=== PATIENT | male | born 1950 | race Asian ===

== ENCOUNTER 2021-09-16 07:23 | Day surgery (SDC) | payer MEDICARE, SELFPAY ==
[2021-09-09 14:36] VITALS: BMI 28.7
--- NOTE | 2021-09-12 16:07 | MHC.SHP ---
Pre-Procedural Eval Section A Date of Service: 09/12/21 The patient is an INPATIENT: No Changes since office visit: No Cold of Flu in the past 2 weeks, No New Medical Problems, No Changes in Medication and No Patient answered all questions The History & Physical has been completed within 30 days and I have reviewed it.: Yes Section B Chief Complaint: cataract Allergies: Allergies Allergy/AdvReac Type Severity Reaction Status Date / Time No Known Allergies Allergy Verified 09/09/21 14:27 Plan Diagnosis/Plan: Unchanged I have reviewed the history and physical and performed a pertinent physical examination on my patient. No changes have occurred unless specified.
--- NOTE | 2021-09-13 09:01 | P.CONAN_ITS ---
Documented by User: Sherlyn Viveros NP 09/13/21 09:01 HPI - Anesthesia Eval Consult details Narrative: 70yo M for Right Cataract Extraction IOL Insertion PCP Cleared No previous cataract on record [facility] Past Medical History Medical History (Updated 09/09/21 @ 14:35 by Odalys Morrow, RN) Cataract Emphysema lung GERD (gastroesophageal reflux disease) Mitral regurgitation Prostate nodule Surgical History Surgical History (Updated 09/09/21 @ 14:27 by Odalys Morrow, RN) History of appendectomy History of thoracotomy Hx of colonoscopy Social History Social History Are you a primary director day care center to a significant other at home: No Do you presently have visiting nurse or other home services: No Patient Tobacco Use Status: Former Tobacco user Quit Date: 2005 Second Hand Smoke Exposure: No Are you DNR?: No Advance Directives: No Advance Directives Information Provided: No Advance Directives on File: No Recently lost weight without trying: No Eating poorly because of decreased appetite: No Nutrition Risks: No Nutritional Risk Meds Allergies Allergy/AdvReac Type Severity Reaction Status Date / Time No Known Allergies Allergy Verified 09/09/21 14:27 Home Medications Medication Instructions Recorded Confirmed Last Taken Type No Known Home Meds 09/09/21 09/09/21 Unknown History Exam Exam Date and Time: September 13, 2021 0901 Height,Weight and Vital Signs: Height 5 ft 10 in Weight 90.718 kg Assessment and Plan Assessment Anesthesia Assessment: Chart Reviewed Documented by User: Keyanna William MD 09/16/21 08:26 [facility] Past Medical History Medical History (Updated 09/09/21 @ 14:35 by Odalys Morrow RN) Cataract Emphysema lung GERD (gastroesophageal reflux disease) Mitral regurgitation Prostate nodule Family History Family history of problems with anesthesia: No Surgical History Surgical History (Updated 09/09/21 @ 14:27 by Odalys Morrow RN) History of appendectomy History of thoracotomy Hx of colonoscopy History of Problems with Anesthesia: No Social History Social History Are you a primary director day care center to a significant other at home: No Do you presently have visiting nurse or other home services: No Patient Tobacco Use Status: Former Tobacco user Quit Date: 2005 Second Hand Smoke Exposure: No Are you DNR?: No Advance Directives: No Advance Directives Information Provided: No Advance Directives on File: No Recently lost weight without trying: No Eating poorly because of decreased appetite: No Nutrition Risks: No Nutritional Risk Meds Allergies Allergy/AdvReac Type Severity Reaction Status Date / Time No Known Allergies Allergy Verified 09/09/21 14:27 Home Medications Medication Instructions Recorded Confirmed Last Taken Type No Known Home Meds 09/09/21 09/09/21 Unknown History Exam Height,Weight and Vital Signs: Height 5 ft 10 in Weight 90.718 kg Vital Signs Temp Pulse Resp BP Pulse Ox 09/16/21 07:43 97.4 F 65 16 186/86 H 98 Airway Mallampati Class: III TM Dist: >3cm Neck ROM: Full Partial: Lower Heart: RRR ? murmur Lungs: CTAB Assessment and Plan Assessment Anesthesia Assessment: Anesthesia Plan Discussed Final Anesthetic Review Family History of Problems with Anesthesia: No History of Problems with Anesthesia: No NPO: Yes ASA Class: III Final Preanesthetic Review: No Changes in Pt Med Stat, Meds/Allgs Chart Reviewed, Consent Obtained/Reviewed and Anes Risks/Benef Reviewed Patient Risk: Intermediate Procedure Risk: Low Assessment/Block/Sedation in SS: Assess/Block/Sedation-SS Anesthetic Plan Anesthetic Plan: MAC: Disposition: Standard PACU
[2021-09-16 07:43] VITALS: BP 186/86; PULSE 65; RESP 16; TEMP 36.3; O2SAT 98
[2021-09-16] MEDS: Tetracaine HCl/PF 0.5% Oph Sol 4 ML DROPS 1 DROP EYE-RIGHT (07:49)
[2021-09-16] MEDS: Tropicamide 1 % Ophth Sol 3 ML BTL 1 DROP EYE-RIGHT ×3 (07:51→08:01)
[2021-09-16] MEDS: Lactated Ringers 500 ML 50 ML IV (07:53)
[2021-09-16] MEDS: Phenylephrine HCL 2.5% Oph SoL 2 ML BOTTLE 1 DROP EYE-RIGHT ×3 (07:55→08:05)
--- NOTE | 2021-09-16 09:23 | P.PCNO_ITS ---
Ophthalmology Procedure Procedure Date of Service: 09/16/21 Ophthalmology Viscoelastic: Healon Duet Dual Pack Pro Ophthalmology Lenses: TECNIS ZXR00 (21) Procedure Notes: PREOPERATIVE DIAGNOSIS: Decreased visual acuity right eye secondary to cataract POSTOPERATIVE DIAGNOSIS: Same PROCEDURE: Right cataract extraction with multifocal intraocular lens insertion SURGEON: Tex Greenberg M.D. ANESTHESIA: Topical/MAC ESTIMATED BLOOD LOSS: None COMPLICATIONS: None After obtaining informed consent, the patient was brought to the operating room suite and placed in the supine position. After adequate sedation per anesthesia, topical drops of Tetracaine were given to the right eye. The eye was then prepped and draped in the usual sterile fashion. The operating room microscope was then positioned over the operative eye and a lid speculum placed. A paracentesis was created. Viscoelastic was then instilled into the anterior chamber. A three plane incision was then created temporally, utilizing a 2.85 mm keratome. Capsulotomy forceps were then utilized to create a circular tear capsulotomy. Hydrodissection and hydrodelineation were carried out until adequate mobilization of the nucleus occurred. Phacoemulsification was then utilized to remove the dense central nucl eus followed by removal of the cortical material utilizing the automated aspiration irrigation unit. Viscoelastic was instilled into the posterior capsular bag followed by placement of a multifocal posterior chamber intraocular lens without difficulty. The residual Viscoelastic was then removed utilizing the automated IA machine. The wound was checked and found to be watertight. The patient tolerated the procedure well and the lid speculum was removed. Intracameral injection of Vigamox 0.1 mL followed by a subtenon injection of Kenalog-40 0.2 mL were administered. The patient will be seen in the a.m.
[2021-09-16 09:50] VITALS: PULSE 63; RESP 16; TEMP 36.4; O2SAT 96
== END 2021-09-16 09:53 | disposition home or self-care (01) ==
PROVIDERS: PCP Internal Medicine; Visit Provider Ophthalmology
PROC: (CPT 66984; principal; 2021-09-16 09:20)
DX: H25.11 Age-related nuclear cataract, right eye (principal); H52.4 Presbyopia; I34.0 Nonrheumatic mitral (valve) insufficiency; K21.9 Gastro-esophageal reflux disease without esophagitis; Z79.82 Long term (current) use of aspirin; Z87.891 Personal history of nicotine dependence
CPT/HCPCS: 66984; J3010; J3300; V2788

== ENCOUNTER 2021-09-30 07:42 | Day surgery (SDC) | payer MEDICARE, SELFPAY ==
[2021-09-09 14:41] VITALS: BMI 28.7
--- NOTE | 2021-09-26 12:45 | MHC.SHP ---
Pre-Procedural Eval Section A Date of Service: 09/26/21 The patient is an INPATIENT: No Changes since office visit: No Cold of Flu in the past 2 weeks, No New Medical Problems, No Changes in Medication and No Patient answered all questions The History & Physical has been completed within 30 days and I have reviewed it.: Yes Section B Chief Complaint: cataract Allergies: Allergies Allergy/AdvReac Type Severity Reaction Status Date / Time No Known Allergies Allergy Verified 09/09/21 14:27 Plan Diagnosis/Plan: Unchanged I have reviewed the history and physical and performed a pertinent physical examination on my patient. No changes have occurred unless specified.
--- NOTE | 2021-09-26 13:42 | P.CONAN_ITS ---
Documented by User: Sherlyn Viveros NP 09/26/21 13:43 HPI - Anesthesia Eval Consult details Narrative: 70yo M for Left Cataract Extraction IOL Insertion PCP cleared Right eye 09/16/21 with MAC: Fent 50, Zofran 4 [facility] Past Medical History Medical History (Updated 09/09/21 @ 14:35 by Odalys Morrow, RN) Cataract Emphysema lung GERD (gastroesophageal reflux disease) Mitral regurgitation Prostate nodule Family History Family history of problems with anesthesia: No Surgical History Surgical History (Updated 09/09/21 @ 14:27 by Odalys Morrow RN) History of appendectomy History of thoracotomy Hx of colonoscopy History of Problems with Anesthesia: No Social History Social History Are you a primary director day care center to a significant other at home: No Do you presently have visiting nurse or other home services: No Patient Tobacco Use Status: Former Tobacco user Quit Date: 2005 Second Hand Smoke Exposure: No Are you DNR?: No Advance Directives: No Advance Directives Information Provided: Yes Advance Directives on File: No Recently lost weight without trying: No Eating poorly because of decreased appetite: No Nutrition Risks: No Nutritional Risk Meds Allergies Allergy/AdvReac Type Severity Reaction Status Date / Time No Known Allergies Allergy Verified 09/09/21 14:27 Home Medications Medication Instructions Recorded Confirmed Last Taken Type No Known Home Meds 09/09/21 09/09/21 Unknown History Exam Exam Date and Time: September 26, 2021 1342 Height,Weight and Vital Signs: Height 5 ft 10 in Weight 90.718 kg Assessment and Plan Assessment Anesthesia Assessment: Chart Reviewed Final Anesthetic Review Family History of Problems with Anesthesia: No History of Problems with Anesthesia: No Documented by User: Ester Blount MD 09/30/21 08:12 [facility] Past Medical History Medical History (Updated 09/09/21 @ 14:35 by Odalys Morrow RN) Cataract Emphysema lung GERD (gastroesophageal reflux disease) Mitral regurgitation Prostate nodule Surgical History Surgical History (Updated 09/09/21 @ 14:27 by Odalys Morrow RN) History of appendectomy History of thoracotomy Hx of colonoscopy Social History Social History Are you a primary director day care center to a significant other at home: No Do you presently have visiting nurse or other home services: No Patient Tobacco Use Status: Former Tobacco user Quit Date: 2005 Second Hand Smoke Exposure: No Are you DNR?: No Advance Directives: No Advance Directives Information Provided: Yes Advance Directives on File: No Recently lost weight without trying: No Eating poorly because of decreased appetite: No Nutrition Risks: No Nutritional Risk Meds Allergies Allergy/AdvReac Type Severity Reaction Status Date / Time No Known Allergies Allergy Verified 09/09/21 14:27 Home Medications Medication Instructions Recorded Confirmed Last Taken Type No Known Home Meds 09/09/21 09/09/21 Unknown History Exam Airway Mallampati Class: II TM Dist: >3cm Neck ROM: Full Denture: Lower Heart: rrr Lungs: cta Assessment and Plan Final Anesthetic Review NPO: Yes ASA Class: II Final Preanesthetic Review: No Changes in Pt Med Stat, Meds/Allgs Chart Reviewed and Consent Obtained/Reviewed Patient Risk: Intermediate Procedure Risk: Intermediate Anesthetic Plan Anesthetic Plan: MAC: Disposition: Standard PACU
[2021-09-30 08:17] VITALS: BP 198/98; PULSE 66; RESP 16; TEMP 36.3; O2SAT 98
[2021-09-30] MEDS: Tetracaine HCl/PF 0.5% Oph Sol 4 ML DROPS 1 DROP EYE-LEFT (08:18)
[2021-09-30] MEDS: Tropicamide 1 % Ophth Sol 3 ML BTL 1 DROP EYE-LEFT ×3 (08:19→08:31)
[2021-09-30] MEDS: Phenylephrine HCL 2.5% Oph SoL 2 ML BOTTLE 1 DROP EYE-LEFT ×3 (08:23→08:35)
[2021-09-30] MEDS: Lactated Ringers 500 ML 50 ML IV (08:33)
--- NOTE | 2021-09-30 09:27 | HO.PNOPHT ---
Ophthalmology Procedure Procedure Date of Service: 09/30/21 Ophthalmology Viscoelastic: Healon Duet Dual Pack Pro Ophthalmology Lenses: TECNIS ZXR00 (21) Procedure Notes: PREOPERATIVE DIAGNOSIS: Decreased visual acuity left eye secondary to cataract POSTOPERATIVE DIAGNOSIS: Same PROCEDURE: Left cataract extraction with intraocular lens insertion SURGEON: Tex Greenberg M.D. ANESTHESIA: Topical/MAC ESTIMATED BLOOD LOSS: None COMPLICATIONS: None After obtaining informed consent, the patient was brought to the operation room suite and placed in the supine position. After adequate sedation per anesthesia, topical drops of Tetracaine were given to the left eye. The eye was then prepped and draped in the usual sterile fashion. The operating room microscope was then positioned over the operative eye and a lid speculum placed. A paracentesis was created. Viscoelastic was then instilled into the anterior chamber. A three plane incision was then created temporally, utilizing a 2.85 mm keratome. Capsulotomy forceps were then utilized to create a circular tear capsulotomy. Hydrodissection and hydrodelineation were carried out until adequate mobilization of the nucleus occurred. Phacoemulsification was then utilized to remove the dense central nucleus followed by removal of the cortical material utilizing the automated aspiration irrigation unit. Viscoat elastic was instilled into the posterior capsular bag followed by placement of a posterior chamber intraocular lens without difficulty. The residual Viscoat elastic was then removed utilizing the automated IA machine. The wound was check and found to be watertight. The patient tolerated the procedure well and the lid speculum was removed. Intracameral injection of Vigamox 0.1 mL followed by a subtenon injection of Kenalog-40 0.2 mL were administered. The patient will be seen in the a.m.
[2021-09-30 09:49] VITALS: BP 177/92; PULSE 61; RESP 16; TEMP 36.9; O2SAT 95
== END 2021-09-30 09:56 | disposition home or self-care (01) ==
PROVIDERS: PCP Internal Medicine; Visit Provider Ophthalmology
PROC: (CPT 66984; principal; 2021-09-30 09:30)
DX: H25.12 Age-related nuclear cataract, left eye (principal); H52.4 Presbyopia; I34.0 Nonrheumatic mitral (valve) insufficiency; N40.2 Nodular prostate without lower urinary tract symptoms; K21.9 Gastro-esophageal reflux disease without esophagitis; J43.9 Emphysema, unspecified; Z87.891 Personal history of nicotine dependence
CPT/HCPCS: 66984; J2250; J3010; J3300; V2788

== ENCOUNTER 2022-01-02 06:42 | Outpatient (REF) | payer MEDICARE, SELFPAY ==
[2022-01-02 11:19] LABS: MANUAL DIFF FLAG NO
[2022-01-02 11:29] LABS: Basophils Absolute Auto 0.1 X10*3/uL (0.0-0.2); Basophils Percent Auto 0.8 % (0-2); Eosinophils Absolute Auto 0.2 X10*3/uL (0.0-0.4); Eosinophils Percent Auto 3.7 % (0-4); Hematocrit 47.1 % (42.0-52.0); Hemoglobin 15.7 g/dl (14.0-18.0); Imm Gran Abs Auto 0.02 X10*3/uL (0.00-0.03); Imm Gran Pct Auto 0.3 % (0.0-0.4); Lymphocytes Absolute Auto 2.2 X10*3/uL (1.2-4.9); Lymphocytes Percent Auto 37.1 % (20-40); Mean Corpuscular HGB Conc 33.3 g/dl (31.0-36.0); Mean Corpuscular Hemoglobin 31.8 pg (27.0-33.0); Mean Corpuscular Volume 95.5 fL (80.0-98.0); Mean Platelet Volume 10.2 fL (9.4-12.4); Monocytes Absolute Auto 0.5 X10*3/uL (0.1-1.2); Monocytes Percent Auto 8.8 % (2-11); Neutrophils Absolute Auto 2.9 x10*3/uL (2.0-8.3); Neutrophils Percent Auto 49.3 % (45-73); Platelet Count 215 X10*3/uL (160-400); Red Blood Count 4.93 X10*6/uL (4.60-5.80); Red Cell Distribution Width 12.2 % (11.0-16.0); White Blood Count 5.9 X10*3/uL (4.8-10.8)
[2022-01-02 11:47] LABS: Alanine Aminotransferase 20 U/L (0-40); Anion Gap 11 (12-20); Aspartate Amino Transferase 18 U/L (5-37); Blood Urea Nitrogen 14 mg/dL (9-16); Calcium 9.5 mg/dL (8.4-10.2); Carbon Dioxide 27 mmol/L (22-29); Chloride 104 mmol/L (96-108); Cholesterol 253 mg/dL; Estimated Glomerular Filt Rate > 60; Glucose Fasting 97 mg/dL (60-99); HDL Cholesterol 64 mg/dL; LDL Cholesterol Calculated 170 mg/dl; Potassium 4.1 mmol/L (3.3-5.1); Sodium 138 mmol/L (135-145); Triglycerides 98 mg/dL
== END 2022-01-02 06:43 | disposition home or self-care (01) ==
LOC: HO.HMGCLDS 06:42
PROVIDERS: PCP Internal Medicine; Visit Provider Internal Medicine
DX: K21.9 Gastro-esophageal reflux disease without esophagitis (principal); E78.5 Hyperlipidemia, unspecified; Z13.220 Encounter for screening for lipoid disorders
CPT/HCPCS: 36415; 80048; 80061; 84450; 84460; 85025

== ENCOUNTER 2022-06-02 13:12 | Emergency (ER) | payer MEDICARE, SELFPAY ==
--- NOTE | ~2022-06-02 | XR_ITS ---
EXAMINATION: XR CHEST CLINICAL INFORMATION: Dizziness COMPARISON: None TECHNIQUE: 2 views of the chest were obtained. FINDINGS: 9 mm well-circumscribed calcific density structure projects over the left lung base. This could represent a bone island or densely calcified granuloma. No focal consolidation or mass. No pleural effusion or pneumothorax. Normal pulmonary vascularity. Normal heart size. Degenerative changes of the shoulders and spine. XR/XR chest 2V IMPRESSION: 9 mm bone island vs. granuloma in the left lateral lung. No acute pulmonary disease.
[2022-06-02 13:24] VITALS: BP 158/81; PULSE 68; RESP 18; TEMP 36.6; O2SAT 98; BMI 27.7
--- NOTE | 2022-06-02 13:26 | ECG_ITS ---
Test Reason : dizzyness Blood Pressure : / mmHG Vent. Rate : 059 BPM Atrial Rate : 059 BPM P-R Int : 170 ms QRS Dur : 108 ms QT Int : 430 ms P-R-T Axes : 059 062 040 degrees QTc Int : 425 ms Sinus bradycardia with sinus arrhythmia Possible Left atrial enlargement Minimal voltage criteria for LVH, may be normal variant ( Johnny product ) Borderline ECG When compared with ECG of 11-JUN-2005 17:46, Vent. rate has decreased BY 54 BPM Referred By: Generic ED Physician Electronically Signed By:EMILY BYRD MD
[2022-06-02 16:25] LABS: MANUAL DIFF FLAG NO
[2022-06-02 16:34] LABS: Basophils Percent Auto 0.3 % (0-2); Eosinophils Absolute Auto 0.1 X10*3/uL (0.0-0.4); Eosinophils Percent Auto 0.4 % (0-4); Hematocrit 45.9 % (42.0-52.0); Hemoglobin 15.6 g/dl (14.0-18.0); Imm Gran Abs Auto 0.04 X10*3/uL (0.00-0.03); Imm Gran Pct Auto 0.3 % (0.0-0.4); Lymphocytes Absolute Auto 1.3 X10*3/uL (1.2-4.9); Lymphocytes Percent Auto 11.1 % (20-40); Mean Corpuscular Hemoglobin 31.6 pg (27.0-33.0); Mean Corpuscular Volume 93.1 fL (80.0-98.0); Mean Platelet Volume 9.4 fL (9.4-12.4); Monocytes Absolute Auto 0.5 X10*3/uL (0.1-1.2); Monocytes Percent Auto 4.5 % (2-11); Neutrophils Absolute Auto 9.6 x10*3/uL (2.0-8.3); Neutrophils Percent Auto 83.4 % (45-73); Platelet Count 227 X10*3/uL (160-400); Red Blood Count 4.93 X10*6/uL (4.60-5.80); Red Cell Distribution Width 11.7 % (11.0-16.0); White Blood Count 11.6 X10*3/uL (4.8-10.8)
[2022-06-02 16:43] LABS: Anion Gap 13 (12-20); Blood Urea Nitrogen 12 mg/dL (9-16); Calcium 9.9 mg/dL (8.4-10.2); Carbon Dioxide 26 mmol/L (22-29); Chloride 104 mmol/L (96-108); Creatinine Clr Calc Pharmacy 80.1; Estimated Glomerular Filt Rate > 60; Glucose Random 129 mg/dL (60-115); Potassium 4.9 mmol/L (3.3-5.1); Sodium 138 mmol/L (135-145)
[2022-06-02 16:50] LABS: Troponin-I High Sensitivity < 3.5 ng/L (<3.5-35.0)
--- NOTE | 2022-06-02 22:06 | ED_ITS ---
HPI - General Adult General Chief complaint: Dizziness Stated complaint: Dizziness Time Seen by Provider: 06/02/22 21:46 Source: patient Mode of arrival: ambulatory Limitations: no limitations History of Present Illness HPI narrative: Patient comes to the emergency room complaining of 1 episode of diaphoresis this morning approximately 11 hours ago. Patient states that this morning he worked out, got home, took a shower. Then while he was resting in the couch, he had an episode of blurred vision and diaphoresis which resolved within an hour. Patient states that he did not have any motor dysfunction, no chest pain or shortness of breath. Patient denies that the room was spinning, no lightheadedness. Patient states that by the time he reached the emergency room, all of his symptoms had resolved. Related Data Home Medications Medication Instructions Recorded Confirmed No Known Home Meds 09/09/21 09/09/21 Allergies Allergy/AdvReac Type Severity Reaction Status Date / Time No Known Allergies Allergy Verified 06/02/22 13:28 Review of Systems Review of Systems: Constitutional : No Weight loss, No Fever, No Chills, No Night Sweats, No Fatigue, No Malaise ENT/Mouth : No Hearing loss, No Ear Pain, No Nasal Congestion, No Sinus Pain, No Hoarseness, No sore throat, No Rhinorrhea, No Swallowing Difficulty Eyes: No Eye Pain, No Swelling, No Redness, No Foreign Body, No Discharge, complaining of few minutes of blurred vision that self-resolved Cardiovascular : No Chest Pain, No SOB, No Dyspnea on Exertion, No Orthopnea, No Edema, No Palpitations, complaining of 1 episode of profuse diaphoresis which self-resolved Respiratory : No Cough, No Sputum, No Wheezing, No Smoke Exposure, No Dyspnea Gastrointestinal : No Nausea, No Vomiting, No Diarrhea, No Constipation, No abdominal Pain, No Hematochezia, No Melena Genitourinary : no irregular bleeding, No Dysuria, No Urinary Frequency, No Hematuria, No Urinary Incontinence, No Urgency, No Flank Pain, No Urinary Flow Changes, No Hesitancy Musculoskeletal : No joint pain, No Myalgias, No Joint Swelling Skin : No Skin Lesions, No rash Neuro : No Weakness, No Numbness, No Paresthesias, No Loss of Consciousness, No Dizziness, No Headache Psych : No Anxiety/Panic, No Depression, No SI/HI/AH/VH, No Social Issues, Heme/Lymph: No Bruising, No Bleeding,No Lymphadenopathy Endocrine : No Polyuria, No Polydipsia, No Temperature Intolerance [facility] Past Medical History Medical History Blood pressure elevated without history of HTN Cataract Dyslipidemia Emphysema lung GERD (gastroesophageal reflux disease) Mitral regurgitation Prostate nodule Varicose veins of bilateral lower extremities with pain Surgical History History of appendectomy History of thoracotomy Hx of colonoscopy Social History Social History Are you a primary cardiac care nurse to a significant other at home: No Do you presently have visiting nurse or other home services: No Patient Tobacco Use Status: Former Tobacco user Quit Date: 2005 e-Cigarette/Vaping Use: Never Used Second Hand Smoke Exposure: No Advance Directives: Yes Advance Directives on File: Yes Advance Directives Date on File: 01/01/22 Current occupational status: retired Cognitive needs: No Hearing needs: No Vision needs: No Physical Exam ED Vital Signs: Vital Signs - 24 hr 06/02/22 13:24 Temperature 98 F Pulse Rate 68 Respiratory Rate 18 Blood Pressure 158/81 H Pulse Oximetry 98 Oxygen Delivery Method Room Air BMI result Body Mass Index 27.7 Const Other: Appearance: Alert. Oriented X3. No acute distress. Well-appearing Eyes: Pupils equal, round and reactive to light. ENT: Pharynx normal. Neck: Normal inspection. Neck supple. No lymph nodes noted. No crepitus CVS: Normal heart rate and rhythm. Pulses normal. Normal S1 and S2 Respiratory: No respiratory distress. Breath sounds normal. No Wheezing. No rales Abdomen: Soft and nontender. No rigidity. No distention. Skin: Skin warm and dry. Normal skin color. Normal skin turgor. Extremities: No lower extremity edema. No Lacerations. No Rash Neuro: Oriented X 3. No motor deficit. No sensory deficit. Moving all extremities. No slurred speech. CN 2 through 12 grossly intact Psych: calm, cooperative, normal affect Course Course Course Narrative: All of patient's labs are within normal limits, white blood cell count likely b umped at 11.6, no signs of infection. Chest x-ray shows a 9 mm granuloma in the left lung, which was discussed with the patient, will follow up with her primary care physician. Troponin negative. At this time patient is asymptomatic. Troponin 2. An orthostatic vitals are negative Troponin x2 is negative. Patient is asymptomatic. Discussed with patient that he needs to follow up with his primary care physician, patient may need a stress test or a Holter monitor evaluation. Medical Decision Making Lab Data Result diagrams: 06/02/22 16:21 06/02/22 16:21 Labs: Lab Results 06/02/22 06/02/22 06/02/22 Range/Units 16:21 16:21 16:21 WBC 11.6 H (4.8-10.8) X10*3/uL RBC 4.93 (4.60-5.80) X10*6/uL Hgb 15.6 (14.0-18.0) g/dl Hct 45.9 (42.0-52.0) % MCV 93.1 (80.0-98.0) fL MCH 31.6 (27.0-33.0) pg MCHC 34.0 (31.0-36.0) g/dl RDW 11.7 (11.0-16.0) % Plt Count 227 (160-400) X10*3/uL MPV 9.4 (9.4-12.4) fL Immature Gran % (Auto) 0.3 (0.0-0.4) % Neut % (Auto) 83.4 H (45-73) % Lymph % (Auto) 11.1 L (20-40) % Meriwether % (Auto) 4.5 (2-11) % Eos % (Auto) 0.4 (0-4) % Baso % (Auto) 0.3 (0-2) % Lymph # (Auto) 1.3 (1.2-4.9) X10*3/uL Meriwether # (Auto) 0.5 (0.1-1.2) X10*3/uL Eos # (Auto) 0.1 (0.0-0.4) X10*3/uL Baso # (Auto) 0.0 (0.0-0.2) X10*3/uL Abs Immat Gran (auto) 0.04 H (0.00-0.03) X10*3/uL Absolute Neuts (auto) 9.6 H (2.0-8.3) x10*3/uL Absolute Nucleated RBC 0.000 (0.0-0.012) X10*3/uL Nucleated RBC % (auto) 0.0 (0.0-0.2) /100WBC Sodium 138 (135-145) mmol/L Potassium 4.9 (3.3-5.1) mmol/L Chloride 104 (96-108) mmol/L Carbon Dioxide 26 (22-29) mmol/L Anion Gap 13 (12-20) BUN 12 (9-16) mg/dL Creatinine 0.90 (0.5-1.4) mg/dL Estim Creat Clear Calc 80.1 Estimated GFR > 60 Random Glucose 129 H (60-115) mg/dL Calcium 9.9 (8.4-10.2) mg/dL Troponin I High Sens < 3.5 (<3.5-35.0) ng/L 06/02/22 Range/Units 22:20 WBC (4.8-10.8) X10*3/uL RBC (4.60-5.80) X10*6/uL Hgb (14.0-18.0) g/dl Hct (42.0-52.0) % MCV (80.0-98.0) fL MCH (27.0-33.0) pg MCHC (31.0-36.0) g/dl RDW (11.0-16.0) % Plt Count (160-400) X10*3/uL MPV (9.4-12.4) fL Immature Gran % (Auto) (0.0-0.4) % Neut % (Auto) (45-73) % Lymph % (Auto) (20-40) % Meriwether % (Auto) (2-11) % Eos % (Auto) (0-4) % Baso % (Auto) (0-2) % Lymph # (Auto) (1.2-4.9) X10*3/uL Meriwether # (Auto) (0.1-1.2) X10*3/uL Eos # (Auto) (0.0-0.4) X10*3/uL Baso # (Auto) (0.0-0.2) X10*3/uL Abs Immat Gran (auto) (0.00-0.03) X10*3/uL Absolute Neuts (auto) (2.0-8.3) x10*3/uL Absolute Nucleated RBC (0.0-0.012) X10*3/uL Nucleated RBC % (auto) (0.0-0.2) /100WBC Sodium (135-145) mmol/L Potassium (3.3-5.1) mmol/L Chloride (96-108) mmol/L Carbon Dioxide (22-29) mmol/L Anion Gap (12-20) BUN (9-16) mg/dL Creatinine (0.5-1.4) mg/dL Estim Creat Clear Calc Estimated GFR Random Glucose (60-115) mg/dL Calcium (8.4-10.2) mg/dL Troponin I High Sens 3.6 (<3.5-35.0) ng/L Discharge Plan Discharge Clinical Impression: Diaphoresis, Dizziness Patient Disposition: Home, Self-Care Instructions: Dizziness (ED) Additional Instructions: Please follow-up with your primary care physician tomorrow. If you have any worsening or new symptoms, please return to the emergency room or call 911 Prescriptions: No Action No Known Home Meds
[2022-06-02 22:49] LABS: Troponin-I High Sensitivity 3.6 ng/L (<3.5-35.0)
[2022-06-02] MEDS: Morphine Sulfate 4 MG/ML CARTRIDGE IVPUSH (23:01)
[2022-06-02] MEDS: Prochlorperazine Edisylate 10 MG/2 ML VIAL 5 MG IVPUSH (23:01)
[2022-06-02 23:04] VITALS: BP 153/80; PULSE 74; RESP 14; TEMP 36.6; O2SAT 95
== END 2022-06-02 23:38 | disposition home or self-care (01) ==
PROVIDERS: Emergency Provider Emergency Medicine; PCP Internal Medicine
DX: R61 Generalized hyperhidrosis (principal); R42 Dizziness and giddiness; H53.8 Other visual disturbances; Z79.899 Other long term (current) drug therapy; Z87.891 Personal history of nicotine dependence
CPT/HCPCS: 36415; 71046; 80048; 84484; 85025; 93005; 96374; 96375; 99284; J2270

== ENCOUNTER 2022-06-12 15:14 | Outpatient (REF) | payer MEDICARE, SELFPAY ==
--- NOTE | ~2022-06-12 | CT_ITS ---
EXAMINATION: CT CHEST WITHOUT CONTRAST CLINICAL INFORMATION: Nonspecific abnormal findings of the lung allen. COMPARISON: Chest x-ray 06/02/2022. TECHNIQUE: Multidetector volumetric CT imaging of the chest was done. Axial MIP volume rendering provided. Sagittal and coronal reformatted images were obtained. This CT examination was performed using dose optimization techniques as appropriate, variously including the following: *Automated exposure control *Adjustment of mA and/or kV according to patient size (this includes techniques or standardized protocols for targeted exams where dose is matched to indication/reason for exam; i.e. extremities or head) *Use of iterative reconstruction technique DLP: 162 mGy-cm FINDINGS: H[employer]AN [employer]AC[employer]Y MEMBER: The lungs are well expanded. LUNGS: The lungs are well expanded and clear of acute pneumonic process. There are 1- 2mm calcified nodules scattered in the right upper, left upper and right lower lobes. Plate-like atelectatic changes are seen in the right lower lobe posterior basal and lateral segments. 5 mm focal thickening left major fissure axial image 302/7, likely a lymph node and a 5 mm nodule right middle lobe axial image 378/7 are noted. MEDIASTINUM: The right thyroid lobe is enlarged with a 2 cm hypodense nodule in the midpole. Central trachea and the bronchi are widely patent. The heart size and the great vessels are normal caliber. Small shotty lymph nodes are seen in the aortic window and the pretracheal space. No pericardial effusion seen. CORONARY ARTERY CALCIFICATION: None visualized on this study. PLEURA: There is no pleural effusion. No pleural mass or thickening. AXILLA: No lymphadenopathy. UPPER ABDOMEN: Visualized liver, spleen, pancreas and bilateral adrenal glands are unremarkable. There are no radiopaque gallstones. OSSEOUS STRUCTURES: There is moderate ventral spondylosis throughout the dorsal spine. No aggressive lytic or sclerotic process is seen. CT/CT chest wo IV con IMPRESSION: 1. Multiple calcified pulmonary nodules, likely granulomas. There is a 5 mm nodule in the right middle lobe. 2. No abnormal mediastinal or axillary lymph nodes are seen. 3. Enlarged right thyroid lobe with a 2 cm hypodense nodule. Correlate with ultrasound. 4. Plate-like atelectasis at the right lower lobe posterior basal and lateral segments. 5. Single solid nodule average size 6-8 mm: Low Risk Patient: CT at 6-12 months, then consider CT at 18-24 months. 6. High-Risk Patient: CT at 6-12 months, then CT at 18-24 months. Fleischner guidelines were followed.
== END 2022-06-12 15:15 | disposition home or self-care (01) ==
LOC: HO.CT 15:14
PROVIDERS: PCP Internal Medicine; Visit Provider Internal Medicine
DX: R91.8 Other nonspecific abnormal finding of lung field (principal)
CPT/HCPCS: 71250

== ENCOUNTER → 2022-07-31 13:55 | Outpatient (BNVA) | payer MEDICARE, SELFPAY | PROVIDERS: PCP Internal Medicine; Visit Provider Surgery Vascular Surgery | DX: I83.11 Varicose veins of right lower extremity with inflammation (principal) | CPT/HCPCS: 99202 ==

== ENCOUNTER 2022-08-27 12:44 | Outpatient (REF) | payer MEDICARE, SELFPAY ==
--- NOTE | ~2022-08-27 | US_ITS ---
EXAMINATION: US LOWER EXTREMITY VENOUS (REFLUX EXAM), BILATERAL CLINICAL INDICATION: Varicose veins COMPARISON: None. TECHNIQUE: Color flow triplex imaging and compression Doppler was performed to evaluate both the deep and the superficial systems bilaterally. To evaluate the superficial system, the examination was performed in the upright position. Color-flow Doppler ultrasound and compression ultrasound were utilized. In addition, maneuvers were utilized to demonstrate reflux. FINDINGS: 1. DEEP VENOUS ULTRASOUND OF THE RIGHT LOWER EXTREMITY: Common Femoral Vein: Compressible, normal respiratory variation and augmented flow. Femoral Vein: Compressible, normal color flow and augmentation. Popliteal Vein: Compressible, normal augmentation. Deep Reflux: Venous reflux is present in the popliteal vein and mid femoral vein. There is no evidence of a Russell's cyst. 2. SUPERFICIAL ULTRASOUND WITH DOPPLER OF RIGHT LOWER EXTREMITY: GREAT SAPHENOUS VEIN: Saphenofemoral Junction: 0.5 cm; Reflux: 0 ms Proximal Thigh: 0.5 cm; Reflux: 3024 ms Mid Thigh: 0.4 cm; Reflux: 3216 ms Above Knee: 0.2 cm; Reflux: 0 ms At Knee: 0.2 cm; Reflux: 0 ms Below Knee: 0.5 cm; Reflux: 3080 ms Mid Calf: 0.3 cm; Reflux: 2384 ms Ankle: 0.3 cm; Reflux: 2480 ms DUPLICATED MEDIAL GREAT SAPHENOUS VEIN: Diameter: None Imaged Reflux: NA DUPLICATED LATERAL GREAT SAPHENOUS VEIN: Proximal: 0.2 cm; Reflux: 0 ms Distal: 0.2 cm; Reflux: 0 ms SMALL SAPHENOUS VEIN: Proximal: 0.5 cm; Reflux: 3224 ms Distal: 0.4 cm; Reflux: 0 ms VEIN OF GIACOMINI: None Imaged. PERFORATORS: Location: Multiple perforators in the thigh and calf Size: 0.1-0.3 cm Reflux: Reflux in the proximal calf jewel inserter VARICOSITIES: Location: Multiple in the thigh and calf Size: 0.4-0.5 cm Reflux: All demonstrate reflux ([id number]) 3. DEEP VENOUS ULTRASOUND OF THE LEFT LOWER EXTREMITY: Common Femoral Vein: Compressible, normal respiratory variation and augmented flow. Femoral Vein: Compressible, normal color flow and augmentation. Popliteal Vein: Compressible, normal augmentation. Deep Reflux: Venous reflux in the common femoral, femoral vein, popliteal vein. There is no evidence of a Russell's cyst. 4. SUPERFICIAL ULTRASOUND WITH DOPPLER OF LEFT LOWER EXTREMITY: GREAT SAPHENOUS VEIN: Saphenofemoral Junction: 0.9 cm; Reflux: 0 ms Proximal Thigh: 0.4 cm; Reflux: 0 ms Mid Thigh: 0.3 cm; Reflux: 0 ms Above Knee: 0.3 cm; Reflux: 3296 ms At Knee: 0.5 cm; Reflux: 3320 ms Below Knee: 0.3 cm; Reflux: 0 ms Mid Calf: 0.2 cm; Reflux: 0 ms Ankle: 0.3 cm; Reflux: 0 ms DUPLICATED MEDIAL GREAT SAPHENOUS VEIN: Diameter: None Imaged Reflux: NA DUPLICATED LATERAL GREAT SAPHENOUS VEIN: Proximal: 0.4 cm; Reflux: 0 ms Distal: 0.2 cm; Reflux: 0 ms SMALL SAPHENOUS VEIN: Proximal: 0.2 cm; Reflux: 0 ms Distal: 0.2 cm; Reflux: 0 ms VEIN OF GIACOMINI: None Imaged. PERFORATORS: Location: Numerous perforators in the calf and thigh Size: 0.2-0.4 cm Reflux: Reflux demonstrated in the proximal calf jewel inserter VARICOSITIES: Location: Distal thigh and proximal calf Size: 0.3-0.6 cm Reflux: Both varicose veins demonstrate reflux US/US venous duplex LE BI IMPRESSION: Right lower extremity: Reflux in the deep system as well as throughout the great saphenous vein, small saphenous vein, and in multiple varicose veins. Left lower extremity: Reflux in the deep system as well as throughout the great saphenous vein, small saphenous vein, and in multiple varicose veins.
== END 2022-08-27 12:45 | disposition home or self-care (01) ==
LOC: HO.US 12:44
PROVIDERS: Visit Provider Surgery Vascular Surgery
DX: I83.893 Varicose veins of bilateral lower extremities with other complications (principal)
CPT/HCPCS: 93970

== ENCOUNTER → 2022-09-16 13:08 | Outpatient (BNVA) | payer MEDICARE, SELFPAY | PROVIDERS: PCP Internal Medicine; Visit Provider Surgery Vascular Surgery | DX: I83.11 Varicose veins of right lower extremity with inflammation (principal) | CPT/HCPCS: 99212 ==

== ENCOUNTER → 2022-10-31 12:30 | Outpatient (BNVA) | payer MEDICARE, SELFPAY | PROVIDERS: PCP Internal Medicine; Visit Provider Surgery Vascular Surgery | DX: I83.11 Varicose veins of right lower extremity with inflammation (principal) | CPT/HCPCS: 36482 ==

== ENCOUNTER 2022-11-03 12:41 | Outpatient (REF) | payer MEDICARE, SELFPAY ==
--- NOTE | ~2022-11-03 | US_ITS ---
EXAMINATION: TRIPLEX SCANNING OF RIGHT LOWER EXTREMITY; SUPERFICIAL ULTRASOUND WITH DOPPLER OF RIGHT LOWER EXTREMITY CLINICAL INFORMATION: Status post Venaseal of the right great saphenous vein COMPARISON: 08/26/2022. TECHNIQUE: Color flow triplex imaging and compression Doppler were performed as well as superficial ultrasound with Doppler. FINDINGS: RIGHT LOWER EXTREMITY DEEP VENOUS SYSTEM: Respiratory variation, normal compression and augmented flow are noted throughout the lower extremity. The visualized common femoral vein, femoral vein, profunda femoral vein, popliteal vein and the calf veins show no evidence of deep venous thrombosis. There is no evidence of Russell's cyst. SUPERFICIAL VENOUS SYSTEM: The right saphenous vein is occluded from the access site to 1.0 cm before the saphenofemoral junction. There is no extension of thrombus into the deep system. US/US venous duplex LE RT IMPRESSION: 1. No evidence of DVT. 2. Excellent appearance status post ablation of the right great saphenous vein.
== END 2022-11-03 12:42 | disposition home or self-care (01) ==
LOC: HO.HMGCX 12:41
PROVIDERS: PCP Internal Medicine; Visit Provider Surgery Vascular Surgery
DX: M79.604 Pain in right leg (principal)
CPT/HCPCS: 93971

== ENCOUNTER → 2022-11-13 12:39 | Outpatient (BNVA) | payer MEDICARE, SELFPAY | PROVIDERS: PCP Internal Medicine; Visit Provider Surgery Vascular Surgery | DX: I83.11 Varicose veins of right lower extremity with inflammation (principal); I83.12 Varicose veins of left lower extremity with inflammation; Z98.890 Other specified postprocedural states | CPT/HCPCS: 99212 ==

== ENCOUNTER 2022-11-27 13:13 | Outpatient (AMB) | payer MEDICARE, SELFPAY ==
--- NOTE | 2022-11-27 13:28 | MHC.PC.OV ---
Vital Signs 11/27/22 13:29 Height 5 ft 11 in Weight 201 lb 2 oz BMI 28.0 BP 140/78 H Blood Pressure Location Rt brachial Position Sitting Pulse 77 Pulse Source Pulse Oximeter Pulse Oximetry (%) 96 Oxygen Delivery Method Room Air Intake Visit Reasons: Annual Physical Intake Note: Pt is here today for a PE Allergies No Known Allergies Allergy (Verified 11/10/23 21:43) Medication List - Last Reconciled 11/27/22 by Harper Cormier MD No Known Home Meds Tobacco use date assessed: 11/27/22 Fall risk assessment: No Falls in past year Last assessed Fall Risk: 11/27/22 HPI Annual Physical HPI Details 72-year-old male, here today for his physical exam. He has history of dyslipidemia, GERD, currently not on any medications at present time. His blood pressure today is elevated at 140/78, denies any accompanying chest pain, no headache or lightheadedness or shortness of breath. Patient states that he just had lunch prior to coming for this appointment. Had an abnormal chest x-ray done last year, and subsequent CT scan of the chest showed presence of her 2 cm hypodense nodule in the midpole of the thyroid gland. It also showed 1-2 mm calcified nodules scattered in the right upper, left upper and right lower lobes, and a 5 mm nodule in the right middle lobe. [facility] Medical History Vitamin D deficiency Thyroid nodule greater than or equal to 1.5 cm in diameter incidentally noted on imaging study Mass of left lung Blood pressure elevated without history of HTN Varicose veins of bilateral lower extremities with pain Dyslipidemia Cataract Emphysema lung GERD (gastroesophageal reflux disease) Mitral regurgitation Prostate nodule Surgical History History of appendectomy Hx of colonoscopy History of thoracotomy Social History Housing: House Are you a primary specialist wound care to a significant other at home: No Do you presently have visiting nurse or other home services: No Patient Tobacco Use Status: Former Tobacco user Quit Date: 2005 e-Cigarette/Vaping Use: Never Used Second Hand Smoke Exposure: No Advance Directives Date on File: 01/01/22 Current occupational status: retired Cognitive needs: No Hearing needs: No Vision needs: No Questionnaire PHQ-9 Over the last 2 weeks, how often have you been bothered by any of the following problems? 10078 - PHQ-9 Billing: Patient declined-do not bill Source: Developed by Drs. Shelton Sheehan, Jada Morton, Jose R Hays and colleagues, with an educational august from [employer]. Thrive Questionnaire Declines Thrive assessment: No Date Thrive assessed: 11/27/22 I am a: Patient What is your living situation today?: I have a steady place to live Within the past 12 months, did the food you bought not last and you didn't have the money to get more?: Never true Within the past 12 months, did you worry whether your food would run out before you got money to buy more?: Never true Do you have trouble paying for medicines?: No Do you have trouble getting transportation to medical appointments?: No Do you have trouble paying your heating and electricity bill?: No Do you have trouble taking care of your child, family member or friend?: No Do you have trouble with day-to-day activities such as bathing, preparing meals, shopping, managing finances, etc.?: No Are you currently unemployed and looking for a job?: No Are you interested in more education?: No AUDIT C Alcohol Use Questionnaire (AUDIT-C) 1. How often do you have a drink containing alcohol?: Never Total Score: 0 DEE DEE-7 AMB Questionnaire DEE DEE-7 Date DEE DEE - 7 assessed: 11/27/22 Source: Developed by Drs. Shelton Sheehan, Jada Morton, Jose R Hays and colleagues, with an educational august from [employer]. DEE DEE-7 Assessment Billing DEE DEE-7 Assessment Tool: pt declined-do not bill Review of Systems Const Denies body aches, Denies fatigue, Denies fever(s), Denies headache(s), Denies malaise, Denies weakness, Denies weight gain and Denies weight loss Eyes Reports no additional complaints ENT Denies dysphagia, Denies dizziness, Denies headache(s), Denies hoarseness, Denies nasal congestion, Denies nasal discharge, Denies neck mass and Denies sore throat Card Denies chest pain, Denies lightheadedness and Denies dyspnea Resp Denies chest congestion, Denies cough and Denies dyspnea GI Denies dysphagia Reports no additional complaints Musc Reports no additional complaints Skin/Breast Denies lesions and Denies rash Neuro Denies dizziness, Denies headache(s) and Denies weakness Psych Reports no additional complaints Endo Denies fatigue Livan/Lymph Reports no additional complaints Aller/Immun Denies seasonal rhinorrhea Physical exam (Primary Care) Vital Signs: Last Vital Signs Pulse 77 11/27/22 13:29 BP 140/78 H 11/27/22 13:29 Pulse Ox 96 11/27/22 13:29 Oxygen Delivery Method Room Air 11/27/22 13:29 BMI result Body Mass Index 28.0 Tobacco/Smoking Status: Tobacco use Status Tobacco use date assessed 11/27/22 11/27/22 13:32 Patient Tobacco Use Status Former Tobacco user 11/27/22 13:29 e-Cigarette/Vaping Use Never Used 11/27/22 13:29 Thrive Assessment: Date of Thrive Assessment Date Thrive assessed 11/27/22 11/27/22 13:35 Const General: comfortable, no acute distress and alert Nutritional Appearance: overweight Orientation/consciousness: patient oriented x3 HENMT Head: Yes normocephalic General nose exam: No nasal discharge present Mouth: Normal oral and palatal mucosa present and moist mucous membranes Eyes General: appearance normal, both eyes and all related structures Neck Neck: Yes full ROM, Yes no lymphadenopathy, Yes supple and No anterior neck swelling Thyroid: not diffusely enlarged and nontender Resp Effort & Inspection: normal respiratory effort and able to speak in complete sentences Auscultation: clear to auscultation bilaterally Cardio Rate: regular rate Rhythm: regular rhythm Heart sounds: S1 normal heart sound present and S2 normal heart sound present Peripheral pulses: Peripheral pulses 2+ throughout GI Palpation (GI): Soft to palpation, nontender and no guarding Auscultation: normal bowel sounds General: Yes no CVA tenderness Male General Exam: Yes normal external exam Back/Spine/Pelvis Back: no CVA tenderness and No back tenderness Skin General skin exam: no rashes or lesions noted Neuro General: patient oriented x3, gait normal, tone normal, moves all extremities and no focal motor deficits Extrem General: Yes full ROM, Yes no joint enlargement, Yes no clubbing, cyanosis or edema, Yes no calf tenderness and Yes normal gait Psych Appearance: grossly normal and well kempt Mental Status: mental status grossly normal Speech and movement: Normal speech and movement present Affect: normal affect Assessment and Plan Assessment & Plan (1) Annual visit for general adult medical examination with abnormal findings: Code(s): Z00. - Encounter for general adult medical examination with abnormal findings Plan: Will check appropriate labs. Continue regular dental visit every 6 months and regular eye exams, at least every [address] Greenberg. Up-to-date with his vaccinations. Declines colon cancer screen. (2) Blood pressure elevated without history of HTN: Code(s): R03.0 - Elevated blood-pressure reading, without diagnosis of hypertension Plan: Blood pressure elevated today, continue to monitor, reinforced importance of following a low-salt diet and getting regular exercise. (3) Dyslipidemia: Code(s): E78.5 - Hyperlipidemia, unspecified Plan: Fasting lipid panel ordered, continue with adherence eating healthy diet and getting regular exercise. (4) Varicose veins of bilateral lower extremities with pain: Code(s): I83.813 - Varicose veins of bilateral lower extremities with pain Plan: Currently followed by Dr. Ruiz (5) Thyroid nodule greater than or equal to 1.5 cm in diameter incidentally noted on imaging study: Comment: 2 cm hypodense nodule in the midpole seen on CT scan chest 06/2022 Code(s): E04.1 - Nontoxic single thyroid nodule Plan: Ultrasound thyroid, TSH with free T4 ordered , endocrine referral to be obtained depending on results tests. Patient currently symptomatic Orders: Orders Lipid Panel 11/28/22 Z00. - Encounter for general adult medical examination with abnormal findings, R03.0 - Elevated blood-pressure reading, without diagnosis of hypertension Alanine Aminotransferase 11/28/22 Z00. - Encounter for general adult medical examination with abnormal findings, R03.0 - Elevated blood-pressure reading, without diagnosis of hypertension Aspartate Amino Transferase 11/28/22 Z. - Encounter for general adult medical examination with abnormal findings, R03.0 - Elevated blood-pressure reading, without diagnosis of hypertension Basic Metabolic Panel Fasting 11/28/22 Z00. - Encounter for general adult medical examination with abnormal findings, R03.0 - Elevated blood-pressure reading, without diagnosis of hypertension Vitamin D 25-OH Total 11/28/22 Z00.01 - Encounter for general adult medical examination with abnormal findings, R03.0 - Elevated blood-pressure reading, without diagnosis of hypertension TSH reflex Free T4 11/28/22 Z00.01 - Encounter for general adult medical examination with abnormal findings, R03.0 - Elevated blood-pressure reading, without diagnosis of hypertension Complete Blood Count Auto Diff 11/28/22 Z00.01 - Encounter for general adult medical examination with abnormal findings, R03.0 - Elevated blood-pressure reading, without diagnosis of hypertension PSA,Total (Free>4and<10) 11/28/22 Z00.01 - Encounter for general adult medical examination with abnormal findings, R03.0 - Elevated blood-pressure reading, without diagnosis of hypertension US thyroid 11/27/22 E04.1 - Nontoxic single thyroid nodule Coding Level of Care Code Est Pt Prev Care >65y(40247) Diagnoses Annual visit for general adult medical examination with abnormal findings Z00.01 Blood pressure elevated without history of HTN R03.0 Dyslipidemia E78.5 Varicose veins of bilateral lower extremities with pain I83.813 Thyroid nodule greater than or equal to 1.5 cm in diameter incidentally noted on imaging study E04.1
[2022-11-27 13:29] VITALS: BP 140/78; PULSE 77; O2SAT 96; BMI 28.0
== END 2022-11-27 15:29 | disposition home or self-care (01) ==
LOC: HO.HMGC 13:13
PROVIDERS: PCP Internal Medicine; Visit Provider Internal Medicine
DX: Z00.01 Encounter for general adult medical examination with abnormal findings (principal); R03.0 Elevated blood-pressure reading, without diagnosis of hypertension; E78.5 Hyperlipidemia, unspecified; I83.813 Varicose veins of bilateral lower extremities with pain; E04.1 Nontoxic single thyroid nodule
CPT/HCPCS: 99499

== ENCOUNTER 2022-11-28 07:01 | Outpatient (REF) | payer MEDICARE, SELFPAY ==
[2022-11-28 11:44] LABS: MANUAL DIFF FLAG NO
[2022-11-28 12:00] LABS: Basophils Absolute Auto 0.1 X10*3/uL (0.0-0.2); Basophils Percent Auto 1.1 % (0-2); Eosinophils Absolute Auto 0.2 X10*3/uL (0.0-0.4); Eosinophils Percent Auto 4.2 % (0-4); Hematocrit 43.7 % (42.0-52.0); Hemoglobin 14.3 g/dl (14.0-18.0); Imm Gran Abs Auto 0.01 X10*3/uL (0.00-0.03); Imm Gran Pct Auto 0.2 % (0.0-0.4); Lymphocytes Absolute Auto 1.9 X10*3/uL (1.2-4.9); Lymphocytes Percent Auto 40.6 % (20-40); Mean Corpuscular HGB Conc 32.7 g/dl (31.0-36.0); Mean Corpuscular Hemoglobin 31.2 pg (27.0-33.0); Mean Corpuscular Volume 95.4 fL (80.0-98.0); Monocytes Absolute Auto 0.5 X10*3/uL (0.1-1.2); Monocytes Percent Auto 10.1 % (2-11); Neutrophils Absolute Auto 2.1 x10*3/uL (2.0-8.3); Neutrophils Percent Auto 43.8 % (45-73); Platelet Count 199 X10*3/uL (160-400); Red Blood Count 4.58 X10*6/uL (4.60-5.80); Red Cell Distribution Width 12.2 % (11.0-16.0); White Blood Count 4.7 X10*3/uL (4.8-10.8)
[2022-11-28 12:35] LABS: Alanine Aminotransferase 19 U/L (0-40); Anion Gap 11 (12-20); Aspartate Amino Transferase 19 U/L (5-37); Blood Urea Nitrogen 16 mg/dL (9-16); Calcium 8.8 mg/dL (8.4-10.2); Carbon Dioxide 26 mmol/L (22-29); Chloride 108 mmol/L (96-108); Cholesterol 215 mg/dL; Estimated Glomerular Filt Rate > 60; Glucose Fasting 91 mg/dL (60-99); HDL Cholesterol 49 mg/dL; LDL Cholesterol Calculated 139 mg/dl; PSA,Total (Free>4and<10) 2.46 ng/mL (0.00-4.00); Potassium 4.6 mmol/L (3.3-5.1); Sodium 140 mmol/L (135-145); Triglycerides 138 mg/dL; Vitamin D 25-OH Total 24.7 ng/mL (>30)
== END 2022-11-28 07:02 | disposition home or self-care (01) ==
LOC: HO.HMGCLDS 07:01
PROVIDERS: PCP Internal Medicine; Visit Provider Internal Medicine
DX: Z00.01 Encounter for general adult medical examination with abnormal findings (principal); Z12.5 Encounter for screening for malignant neoplasm of prostate; R03.0 Elevated blood-pressure reading, without diagnosis of hypertension
CPT/HCPCS: 36415; 80048; 80061; 82306; 84153; 84443; 84450; 84460; 85025

== ENCOUNTER 2022-12-17 12:44 | Outpatient (REF) | payer MEDICARE, SELFPAY ==
--- NOTE | ~2022-12-17 | US_ITS ---
EXAMINATION: US THYROID CLINICAL INFORMATION: Nontoxic single thyroid nodule. COMPARISON: None available. TECHNIQUE: Linear transducer grayscale and color Doppler examination with attention to the region of the thyroid. FINDINGS: SIZE: Measurements of the thyroid lobes and nodules are given in sagittal, anteroposterior and transverse dimensions respectively. Right Thyroid Lobe: 6.0 x 2.3 x 2.9 cm, volume 21.0 mL. Parenchyma: The gland echotexture is homogeneous. Thyroid vascularity is normal. Left Thyroid Lobe: 4.7 x 1.2 x 2.3 cm, volume 6.8 mL. Parenchyma: The gland echotexture is homogeneous. Thyroid vascularity is normal. Isthmus: 0.2 cm in maximum AP dimension. Estimated total number of nodules greater than or equal to 1 cm: 1. 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 Location: Right inferior. Size: 2.5 x 2.0 x 1.9 cm, volume 4.86 mL. Nodule characteristics: Composition: Solid/almost completely solid (2). Echogenicity: Hypoechoic (2). Shape: Taller than wide (3). Margins: Smooth (0). Echogenic Foci: None (0). ACR TI-RADS total points: 7 ACR TI-RADS category: 5 2. Location: Right isthmus. Size: 0.7 x 0.4 x 0.7 cm, volume 0.10 mL. Nodule characteristics: Composition: Cystic(0). ACR TI-RADS total points: 0 ACR TI-RADS category: 1 3. Location: Right inferior. Size: 0.7 x 0.6 x 0.7 cm, volume 0.15 mL. Nodule characteristics: Composition: Solid/almost completely solid (2). Echogenicity: Hypoechoic (2). Shape: Not taller than wide (0). Margins: Smooth (0). Echogenic Foci: None (0). ACR TI-RADS total points: 4 ACR TI-RADS category: 4 4. Location: Left superior. Size: 0.9 x 0.7 x 0.8 cm, volume 0.25 mL. Nodule characteristics: Composition: Solid/almost completely solid (2). Echogenicity: Hypoechoic (2). Shape: Not taller than wide (0). Margins: Smooth (0). Echogenic Foci: None (0). ACR TI-RADS total points: 4 ACR TI-RADS category: 4 5. Location: Left mid medial. Size: 0.7 x 0.4 x 0.6 cm, volume 0.08 mL. Nodule characteristics: Composition: Mixed cystic and solid (1). Echogenicity: Isoechoic (1). Shape: Not taller than wide (0). Margins: Smooth (0). Echogenic Foci: None (0). ACR TI-RADS total points: 2 ACR TI-RADS category: 2 NODES: No lymphadenopathy is seen in the tissue surrounding the thyroid gland. US/US thyroid IMPRESSION: Enlarged right thyroid lobe with bilateral thyroid nodules. The largest lower pole right thyroid nodule is suspicious based on total points and TI-RADS category. Recommend ultrasound-guided fine-needle aspiration. ACR TI-RADS RECOMMENDATION REFERENCE: Ultrasound-guided fine-needle aspiration, followup ultrasound, no further follow up. * TR1 (0 point) and TR2 (2 points): No FNA or follow up. * TR3 (3 points): FNA if more than or equal to 2.5 cm in maximum dimension, followup ultrasound in 1, 3 and 5 years if 1.5 to 2.4 cm in maximum dimension. * TR4 (4-6 points): FNA if more than or equal to 1.5 cm in maximum dimension, followup ultrasound in 1, 2, 3 and 5 years if 1 to 1.4 cm in maximum dimension. * TR5 (more than or equal to 7 points): FNA if more than or equal to 1 cm in maximum dimension, followup ultrasound every year for 5 years if 0.5 to 0.9 cm in maximum dimension. * TR3, TR4 or TR5 nodules that are below the size threshold for followup receive no follow up.
== END 2022-12-17 12:45 | disposition home or self-care (01) ==
LOC: HO.HMGCX 12:44
PROVIDERS: PCP Internal Medicine; Visit Provider Internal Medicine
DX: E04.1 Nontoxic single thyroid nodule (principal)
CPT/HCPCS: 76536

== ENCOUNTER → 2022-12-26 08:36 | Outpatient (BNVA) | payer MEDICARE, SELFPAY | PROVIDERS: PCP Internal Medicine; Visit Provider Surgery Vascular Surgery | DX: I83.12 Varicose veins of left lower extremity with inflammation (principal) | CPT/HCPCS: 36482 ==

== ENCOUNTER 2022-12-30 08:09 | Outpatient (REF) | payer MEDICARE, SELFPAY ==
--- NOTE | ~2022-12-30 | US_ITS ---
EXAMINATION: US VENOUS ULTRASOUND WITH DOPPLER LOWER EXTREMITY, LEFT CLINICAL INFORMATION: Post vena seal 12/26/2022 COMPARISON: None available. TECHNIQUE: Ultrasound of the deep veins is performed from the hip to the calf with compression sonography and color and pulse Doppler assessment. Spectral analysis with color-flow imaging is performed. FINDINGS: There is thrombus seen at the saphenofemoral junction extending into the common femoral vein. There is approximately 50% diameter narrowing of the left common femoral vein in this region. There is echogenic material seen in the left greater saphenous vein post vena seal procedure. The left greater saphenous vein is closed. The left superficial femoral, profunda, popliteal, posterior tibial and peroneal veins are patent. No Russell's cyst. US/US venous duplex LE IMPRESSION: DVT at the left saphenofemoral junction extending into the common femoral vein. Findings were communicated to Kayla from Dr. Ruiz's office at 8:35 AM by the technologist at the completion of the exam. Final report was communicated by the [place] work flow bid clerk.
== END 2022-12-30 08:10 | disposition home or self-care (01) ==
LOC: HO.US 08:09
PROVIDERS: PCP Internal Medicine; Visit Provider Surgery Vascular Surgery
DX: M79.605 Pain in left leg (principal)
CPT/HCPCS: 93971

== ENCOUNTER 2023-01-09 11:16 | Outpatient (REF) | payer MEDICARE, SELFPAY ==
--- NOTE | ~2023-01-09 | US_ITS ---
EXAMINATION: US VENOUS ULTRASOUND WITH DOPPLER LOWER EXTREMITY, LEFT CLINICAL INFORMATION: Follow-up. Post vena seal 12/26/2022 COMPARISON: Previous exam 12/30/2022 TECHNIQUE: Ultrasound of the deep veins is performed from the hip to the calf with compression sonography and color and pulse Doppler assessment. Spectral analysis with color-flow imaging is performed. FINDINGS: There is echogenic material seen in the left greater saphenous vein extending into the left common femoral vein. This is similar to 12/30/2022 exam. The left greater saphenous vein is closed. The visualized superficial femoral superficial femoral vein, profunda femoral vein, popliteal vein, and the trifurcation region shows no evidence of deep venous thrombosis. . There is no significant popliteal fossa cyst. US/US venous duplex LE LT IMPRESSION: DVT at the left saphenofemoral junction extending into the common femoral vein. This appears unchanged from 12/30/2022 exam. No other evidence of DVT. Findings were communicated to Kayla at [facility] [place] [facility] vascular by the computer technologist at the completion of the exam
== END 2023-01-09 11:17 | disposition home or self-care (01) ==
LOC: HO.HMGCX 11:16
PROVIDERS: PCP Internal Medicine; Visit Provider Surgery Vascular Surgery
DX: M79.605 Pain in left leg (principal)
CPT/HCPCS: 93971

== ENCOUNTER → 2023-01-13 14:45 | Outpatient (BNVA) | payer MEDICARE, SELFPAY | PROVIDERS: PCP Internal Medicine; Visit Provider Surgery Vascular Surgery | DX: I83.11 Varicose veins of right lower extremity with inflammation (principal); I83.12 Varicose veins of left lower extremity with inflammation; Z98.890 Other specified postprocedural states; Z91.148 Patient's other noncompliance with medication regimen for other reason | CPT/HCPCS: 99212 ==

== ENCOUNTER 2023-05-26 12:42 | Outpatient (AMB) | payer MEDICARE, SELFPAY ==
[2023-05-26 13:16] VITALS: BP 150/88; PULSE 66; O2SAT 96; BMI 28.4
--- NOTE | 2023-05-26 13:16 | MHC.PC.OV ---
Vital Signs 05/26/23 13:16 Height 5 ft 11 in Weight 204 lb BMI 28.4 BP 150/88 H Blood Pressure Location Rt brachial Position Sitting Pulse 66 Pulse Source Pulse Oximeter Pulse Oximetry (%) 96 Oxygen Delivery Method Room Air Intake Visit Reasons: 6m,bp,lipids, thyroid US results Intake Note: pt did not get labs. pt is here to follow up on thyroid US results and BP Allergies No Known Allergies Allergy (Verified 05/26/23 13:45) Medication List - Last Reconciled 05/26/23 by Harper Cormier MD cholecalciferol (vitamin D3) 1,250 mcg PO QWEEK 3 months Tobacco use date assessed: 05/26/23 Fall risk assessment: No Falls in past year Last assessed Fall Risk: 05/26/23 Dental Screening Dental Screen Date: 05/26/23 Did you have a dental visit in the last 12 months?: Yes Did you have a dental problem in the last 6 months where you did not have access to dental care?: No Was dental information given to patient?: Patient has dentist HPI 6m,bp,lipids, thyroid US results HPI Details 72-year-old male here today for follow-up on results of thyroid ultrasound , and for blood pressure check. He has been feeling well with no complaints at present time. Recent fasting labs done showed low vitamin-D level, TSH within normal limits, LDL cholesterol slightly elevated. His thyroid ultrasound showed to thyroid nodules on the right lobe greater than 1 cm,Location: Right inferior. Size: 2.5 x 2.0 x 1.9 cm, volume 4.86 mL. Nodule characteristics: Composition: Solid/almost completely solid (2). Echogenicity: Hypoechoic (2). Shape: Taller than wide (3). Margins: Smooth (0). Echogenic Foci: None (0). ACR TI-RADS total points: 7 ACR TI-RADS category: 5 2. Location: Right isthmus. Size: 0.7 x 0.4 x 0.7 cm, volume 0.10 mL. Nodule characteristics: Composition: Cystic(0). ACR TI-RADS total points: 0 ACR TI-RADS category: 1 3. Location: Right inferior. Size: 0.7 x 0.6 x 0.7 cm, volume 0.15 mL. Nodule characteristics: Composition: Solid/almost completely solid (2). Echogenicity: Hypoechoic (2). Shape: Not taller than wide (0). Margins: Smooth (0). Echogenic Foci: None (0). ACR TI-RADS total points: 4 ACR TI-RADS category: 4 PFSH Medical History Vitamin D deficiency Thyroid nodule greater than or equal to 1.5 cm in diameter incidentally noted on imaging study Mass of left lung Blood pressure elevated without history of HTN Varicose veins of bilateral lower extremities with pain Dyslipidemia Cataract Emphysema lung GERD (gastroesophageal reflux disease) Mitral regurgitation Prostate nodule Surgical History History of appendectomy Hx of colonoscopy History of thoracotomy Social History Housing: House Are you a primary critical care paramedic to a significant other at home: No Do you presently have visiting nurse or other home services: No Patient Tobacco Use Status: Former Tobacco user Quit Date: 2005 e-Cigarette/Vaping Use: Never Used Second Hand Smoke Exposure: No Advance Directives Date on File: 01/01/22 Current occupational status: retired Cognitive needs: No Hearing needs: No Vision needs: No Questionnaire Thrive Questionnaire Date Thrive assessed: 11/27/22 DEE DEE-7 AMB Questionnaire DEE DEE-7 Date DEE DEE - 7 assessed: 11/27/22 Source: Developed by Drs. Shelton Sheehan, Jada Morton, Jose R Hays and colleagues, with an educational august from [employer]. Review of Systems Const Denies body aches, Denies fatigue, Denies fever(s), Denies headache(s), Denies malaise, Denies weakness, Denies weight gain and Denies weight loss Eyes Reports no additional complaints ENT Denies dysphagia, Denies dizziness, Denies headache(s), Denies hoarseness, Denies nasal congestion, Denies nasal discharge, Denies neck mass, Denies neck pain and Denies sore throat Card Denies chest pain, Denies lightheadedness and Denies dyspnea Resp Denies chest congestion, Denies cough and Denies dyspnea GI Denies dysphagia Musc Denies neck pain Neuro Denies dizziness, Denies headache(s) and Denies weakness Endo Denies fatigue Aller/Immun Denies seasonal rhinorrhea Physical exam (Primary Care) Vital Signs: Last Vital Signs Pulse 66 05/26/23 13:16 BP 150/88 H 05/26/23 13:16 Pulse Ox 96 05/26/23 13:16 Oxygen Delivery Method Room Air 05/26/23 13:16 BMI result Body Mass Index 28.4 Tobacco/Smoking Status: Tobacco use Status Tobacco use date assessed 05/26/23 05/26/23 13:19 Patient Tobacco Use Status Former Tobacco user 05/26/23 13:19 e-Cigarette/Vaping Use Never Used 05/26/23 13:19 Thrive Assessment: Date of Thrive Assessment Date Thrive assessed 11/27/22 05/26/23 13:19 Const General: comfortable, no acute distress and alert Nutritional Appearance: overweight HENMT Head: Yes normocephalic and Yes atraumatic General nose exam: No nasal discharge present Mouth: Normal oral and palatal mucosa present and moist mucous membranes Neck Neck: Yes full ROM, Yes no lymphadenopathy, Yes supple and No anterior neck swelling Thyroid: not diffusely enlarged, no masses, no nodules and nontender Resp Effort & Inspection: normal respiratory effort and able to speak in complete sentences Auscultation: clear to auscultation bilaterally Cardio Rate: regular rate Rhythm: regular rhythm Heart sounds: S1 normal heart sound present and S2 normal heart sound present Peripheral pulses: Peripheral pulses 2+ throughout GI Palpation (GI): Soft to palpation, nontender and no guarding Auscultation: normal bowel sounds Skin General skin exam: no rashes or lesions noted Extrem General: Yes full ROM, Yes no joint enlargement, Yes no clubbing, cyanosis or edema, Yes no calf tenderness and Yes normal gait Assessment and Plan Assessment & Plan (1) Thyroid nodule greater than or equal to 1.5 cm in diameter incidentally noted on imaging study: Comment: 2 cm hypodense nodule in the midpole seen on CT scan chest 06/2022 Code(s): E04.1 - Nontoxic single thyroid nodule Plan: Referred to [facility] endocrine for further evaluation, needs fine-needle aspiration biopsy of the 2 thyroid nodules, greater than 1 cm seen on ultrasound. Patient however asymptomatic, TSH done was within normal limits (2) Vitamin D deficiency: Code(s): E55.9 - Vitamin D deficiency, unspecified Plan: Discussed recent vitamin-D level with patient, will replace it [place] vitamin-[place] 3 [place] [address] units per capsule to take once a week for the next 3 months. (3) Blood pressure elevated without history of HTN: Code(s): R03.0 - Elevated blood-pressure reading, without diagnosis of hypertension Plan: Recheck blood pressure today and it came down to 140/85. Patient denies any symptoms of chest pain no headache no swelling in extremities, no shortness of breath or dizziness. Will have him come back to get blood pressure recheck by nurse navigator this week or next week advised to go on a low-salt diet, doing regular exercise Orders: Referrals Endocrinology Referral E04.1 - Nontoxic single thyroid nodule Medications: New cholecalciferol (vitamin D3) 1,250 mcg PO QWEEK 3 months 13 caps 0RF E55.9 - Vitamin D deficiency, unspecified Coding Level of Care Code Est Pt Level 4 (37342) Diagnoses Thyroid nodule greater than or equal to 1.5 cm in diameter incidentally noted on imaging study E04.1 Vitamin D deficiency E55.9 Blood pressure elevated without history of HTN R03.0
== END 2023-05-26 14:33 | disposition home or self-care (01) ==
PROVIDERS: Visit Provider Internal Medicine
DX: E04.1 Nontoxic single thyroid nodule (principal); E55.9 Vitamin D deficiency, unspecified; R03.0 Elevated blood-pressure reading, without diagnosis of hypertension
CPT/HCPCS: 99214

== ENCOUNTER 2023-11-10 19:57 | Emergency (ER) | payer MEDICARE, SELFPAY ==
[2023-11-10 21:37] VITALS: BP 140/104; PULSE 69; RESP 14; TEMP 36.1; O2SAT 95; BMI 28.3
--- NOTE | 2023-11-10 22:30 | ED.BACK ---
HPI - Back Pain/Injury General Chief Complaint: Back Pain/Injury Stated Complaint: lower back pain Time Seen by Provider: 11/10/23 22:27 Source: patient Mode of arrival: ambulatory Limitations: no limitations History of Present Illness HPI Narrative: Patient with no significant chronic low back pain was playing off about a week ago noticed sudden onset of pain on the left side radiating to the left lower extremity without any paresthesia and weakness history of similar pain few years ago asymptomatic since then Related Data Previous Rx's ?Medication ?Instructions ?Recorded cholecalciferol (vitamin D3) 1,250 1,250 mcg PO QWEEK 3 months #13 05/26/23 mcg (50,000 unit) capsule caps cyclobenzaprine 10 mg tablet 10 mg PO Q8H #20 tabs 11/10/23 morphine 15 mg immediate release 15 mg PO Q8H PRN pain #15 tabs 11/10/23 tablet Allergies Allergy/AdvReac Type Severity Reaction Status Date / Time No Known Allergies Allergy Verified 11/10/23 21:43 Review of Systems Review of Systems: Yes all other systems are reviewed and are negative [facility] Past Medical History Medical History Vitamin D deficiency Thyroid nodule greater than or equal to 1.5 cm in diameter incidentally noted on imaging study Mass of left lung Blood pressure elevated without history of HTN Varicose veins of bilateral lower extremities with pain Dyslipidemia Cataract Emphysema lung GERD (gastroesophageal reflux disease) Mitral regurgitation Prostate nodule Surgical History History of appendectomy Hx of colonoscopy History of thoracotomy Social History Social History Housing: House Are you a primary pet care attendant to a significant other at home: No Do you presently have visiting nurse or other home services: No Patient Tobacco Use Status: Former Tobacco user Quit Date: 2005 e-Cigarette/Vaping Use: Never Used Second Hand Smoke Exposure: No Advance Directives: No Advance Directives Information Provided: No Advance Directives Date on File: 01/01/22 Current occupational status: retired Cognitive needs: No Hearing needs: No Vision needs: No Physical Exam Vital Signs: Vital Signs: Last Vital Signs Temp 97.9 F 11/10/23 23:52 Pulse 70 11/10/23 23:52 Resp 17 11/10/23 23:52 BP 195/98 H 11/10/23 23:52 Pulse Ox 97 11/10/23 23:52 O2 Del Method Room Air 11/10/23 23:52 BMI result Body Mass Index 28.3 Appearance: Alert. Oriented X3. No acute distress. CVS: Normal heart rate and rhythm. Pulses normal. Respiratory: No respiratory distress. Equal air entry bilateral, Abdomen: Soft and nontender. Bowel sounds are present, no mass palpable, no CVA tenderness back: Tenderness in in the left sciatic notch area [place] test positive, pace sign positive for piriformis muscle strain Skin: Skin warm and dry. Normal skin color. Normal skin turgor. Extremities: No lower extremity edema. No calf tenderness Neuro: Oriented X 3. No motor deficit. No sensory deficit.No cerebellar signs , cranial nerves II-XII intact Medications Administered Discontinued Medications Generic Name Dose Route Start Last Admin Trade Name Freq PRN Reason Stop Dose Admin Cyclobenzaprine HCl 10 mg 11/10/23 22:42 11/10/23 23:09 Cyclobenzaprine Hcl 10 Mg Tablet PO 11/10/23 22:43 10 mg ONCE ONE Administration Morphine Sulfate 15 mg 11/10/23 22:42 11/10/23 23:08 Morphine Sulfate Immed Release 15 Mg Tablet PO 11/10/23 22:43 15 mg ONCE ONE Administration Medical Decision Making Medical Decision Making [facility] Narrative: Patient with left sciatic pain likely piriformis muscle strain with positive [place] test and pace sign patient advised piriformis stretching exercises advised to follow with Orthopedics if pain continues for further management to rule out number canal stenosis Discharge Plan Discharge Patient Disposition: Home, Self-Care Instructions: Piriformis Syndrome (ED) Additional Instructions: Do stretching exercise for piriformis syndrome as advised Pain medication muscle relaxant as prescribed Follow-up with orthopedics if not better Prescriptions: New morphine 15 mg tablet 15 mg PO Q8H PRN (Reason: pain) Qty: 15 0RF Rx Instructions: Partial Fill upon patient request. cyclobenzaprine 10 mg tablet 10 mg PO Q8H Qty: 20 0RF No Action cholecalciferol (vitamin D3) 1,250 mcg (50,000 unit) capsule 1,250 mcg PO QWEEK 90 Days Qty: 13 0RF Referrals: Haider Bills MD [Physician] - 1 week Interventions: ED Discharge Assessment Last Done: 11/10/23 23:52 Print Language: Other
[2023-11-10 22:47] VITALS: BP 195/98; PULSE 70; RESP 17; TEMP 36.6; O2SAT 97
[2023-11-10] MEDS: Morphine Sulfate Immed Release 15 MG TABLET PO (23:08)
[2023-11-10] MEDS: Cyclobenzaprine HCl 10 MG TABLET PO (23:09)
[2023-11-10 23:52] VITALS: BP 195/98; PULSE 70; RESP 17; TEMP 36.6; O2SAT 97
== END 2023-11-10 23:51 | disposition home or self-care (01) ==
PROVIDERS: Emergency Provider Internal Medicine; PCP Internal Medicine
DX: G57.02 Lesion of sciatic nerve, left lower limb (principal); M54.50 Low back pain, unspecified
CPT/HCPCS: 99283

== ENCOUNTER 2023-12-10 08:32 | Outpatient (AMB) | payer MEDICARE, SELFPAY ==
[2023-12-10 08:42] VITALS: BMI 28.2
--- NOTE | 2023-12-10 08:42 | A.OFFVIS_ITS ---
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 States pain started in November 2023 and has worsen. Recently he has noticed his right side also hurts. States he is having radiating sharp pain to both his legs. His pain is constant through out the day. States his pain is worsen with prolong walking. He was seen in ED on 11/10/[address] Red[place]. Allergies No Known Allergies Allergy (Verified 12/10/23 08:42) Medication List - Last Reconciled 12/10/23 by Merari Weathers MD cholecalciferol (vitamin D3) 1,250 mcg PO QWEEK 3 months HPI Comments Details: 1 month ago, new onset lower back pain and leg weakness. Denies inciting injuries. He says he was playing golf. When he went to ER, he was having severe pain on lower back and left buttocks. But during onset, worse with walking and standing, feels like legs no energy . He can walk only up to 1000 feet before he feels this weakness. Just a little bit of pain on lower back. Denies buttocks, hip or groin pain. Also noted numbness on legs when laying down. Retired. 12 years old, had some kind of back injury/fall. But denies any other problems/back pain issues. [facility] Medical History (Updated 12/10/23 @ 09:20 by Merari Weathers MD) Lumbar spondylosis Vitamin D deficiency Thyroid nodule greater than or equal to 1.5 cm in diameter incidentally noted on imaging study Mass of left lung Blood pressure elevated without history of HTN Varicose veins of bilateral lower extremities with pain Dyslipidemia Cataract Emphysema lung GERD (gastroesophageal reflux disease) Mitral regurgitation Prostate nodule Surgical History History of appendectomy Hx of colonoscopy History of thoracotomy Social History Housing: House Are you a primary health care technician to a significant other at home: No Do you presently have visiting nurse or other home services: No Patient Tobacco Use Status: Former Tobacco user Quit Date: 2005 e-Cigarette/Vaping Use: Never Used Second Hand Smoke Exposure: No Advance Directives Date on File: 01/01/22 Current occupational status: retired Cognitive needs: No Hearing needs: No Vision needs: No Review of Systems Const All systems reviewed & are unremarkable except as noted in HPI and below Physical Exam Vital Signs: BMI result Body Mass Index 28.2 Constitutional: Patient appears to be in no acute distress, well nourished and well developed. Patient was appropriately conversant and oriented. MSK: No specific abnormalities found on inspection of the spine and all extremities. No pain with palpation over the lumbar area. Lumbar ROM was full. Bilateral hip, knee and ankle ROM WNL. No ligamentous laxity or crepitance. No increased effusion. Straight-leg raising test negative. FABERE test positive leg pain bilateral. Strength is 5/5 in all muscle groups tested. No increased tone noted. Neurological: No focal weakness. Depressed left patellar reflex compared to right. Worthington?s negative bilaterally. Babinski was down going bilaterally. Clonus was negative. Gait is non-antalgic without loss of balance. Results Reviewed Results Reviewed: I independently reviewed the results of the following: X-ray done today in the office shows decreased disc space L5-S1 I reviewed records from the following: ER notes Vascular - s/p US 01/09/23, L GSV Venaseal 12/26; history of DVT, was on Eliquis (not taking currently) Assessment & Plan Assessment & Plan (1) Lumbar spondylosis: Code(s): M47.816 - Spondylosis without myelopathy or radiculopathy, lumbar region Category: Medical (2) ITB syndrome: Code(s): M76.30 - Iliotibial band syndrome, unspecified leg Category: Medical Qualifiers: Laterality: unspecified laterality Qualified Code(s): M76.30 - Ilioti bial band syndrome, unspecified leg (3) Lumbar spinal stenosis: Code(s): M48.061 - Spinal stenosis, lumbar region without neurogenic claudication Category: Medical Qualifiers: Neurogenic claudication status: with neurogenic claudication Qualified Code(s): M48.062 - Spinal stenosis, lumbar region with neurogenic claudication (4) Lumbar radiculopathy: Code(s): M54.16 - Radiculopathy, lumbar region Category: Medical Plan Acute onset low back pain, describing claudication and exam showing depressed left patellar reflex. Lumbar x-ray shows decreased disc space L5-S1. It would be reasonable to obtain further imaging such as MRI. An MRI would help rule out any serious condition, guide treatment and assess prognosis for recovery. Specifically ruling out spinal stenosis, L4-5 or L5-S1 disc herniation. We would also send him to PT to work on lower back and ITB. Assessment and plan discussed with patient, and patient was agreeable. All questions were answered thoroughly. Follow-up in 6 weeks or after MRI done Merari Weathers MD, ROMELIA Board Certified, [place] [employer] and Rehabilitation (ABPMR) Board Certified, [place] Board [employer] Electrodiagnostic [employer] (ABEM) Orders: Orders XR lumbar spine 2-3V Today M54.9 - Dorsalgia, unspecified PT Evaluation and Treatment Today M47.816 - Spondylosis without myelopathy or radiculopathy, lumbar region, M76.30 - Iliotibial band syndrome, unspecified leg MR lumbar spine wo con Today M47.816 - Spondylosis without myelopathy or radiculopathy, lumbar region, M48.061 - Spinal stenosis, lumbar region without neurogenic claudication, M54.16 - Radiculopathy, lumbar region Coding Level of Care Code New Pt Level 4 (61886) Diagnoses Lumbar spondylosis M47.816 Iliotibial band syndrome, unspecified laterality M76.30 Laterality: unspecified laterality Spinal stenosis of lumbar region with neurogenic claudication M48.062 Neurogenic claudication status: with neurogenic claudication Lumbar radiculopathy M54.16
== END 2023-12-10 09:20 | disposition home or self-care (01) ==
PROVIDERS: PCP Internal Medicine; Visit Provider Physical Medicine & Rehabilitation
DX: M47.816 Spondylosis without myelopathy or radiculopathy, lumbar region (principal); M76.30 Iliotibial band syndrome, unspecified leg; M48.062 Spinal stenosis, lumbar region with neurogenic claudication; M54.16 Radiculopathy, lumbar region
CPT/HCPCS: 99204

== ENCOUNTER 2023-12-10 10:41 | Outpatient (REF) | payer MEDICARE, SELFPAY ==
--- NOTE | ~2023-12-10 | XR_ITS ---
EXAMINATION: XR LUMBOSACRAL SPINE CLINICAL INFORMATION: Back pain. COMPARISON: None available. TECHNIQUE: 3 views of the lumbosacral spine. FINDINGS: Levoscoliosis of the thoracolumbar spine. Facet arthritis in the lower lumbar spine. Multilevel lumbar spondylosis with prominent osteophytes and mild multilevel loss of disc space height. Minimal grade 1 retrolisthesis of L2 on L3. Visualization of the lower lumbar spine limited due to overlying bony structures. Bones are diffusely demineralized. XR/XR lumbar spine 2-3V IMPRESSION: Multilevel lumbar spondylosis.
== END 2023-12-10 10:42 | disposition home or self-care (01) ==
LOC: HO.HOSX 10:41
PROVIDERS: Visit Provider Physical Medicine & Rehabilitation
DX: M47.816 Spondylosis without myelopathy or radiculopathy, lumbar region (principal); M54.9 Dorsalgia, unspecified; M54.16 Radiculopathy, lumbar region; M76.30 Iliotibial band syndrome, unspecified leg; M48.062 Spinal stenosis, lumbar region with neurogenic claudication
CPT/HCPCS: 72100; 99202

== ENCOUNTER 2023-12-30 12:20 | Outpatient (REF) | payer MEDICARE, SELFPAY ==
--- NOTE | ~2023-12-30 | MR_ITS ---
MR LUMBAR SPINE WITHOUT CONTRAST CLINICAL INFORMATION: Spondylosis without myelopathy or radiculopathy. Acute onset low back pain. COMPARISON: Lumbar spine radiographs 12/10/2023. TECHNIQUE: MRI of the lumbar spine was obtained using routine sequences without contrast. FINDINGS: There is transitional anatomy. For the purposes of this report there are 5 nonrib-bearing lumbar-type vertebral bodies and S1 is lumbarized, sharing a nearly completely developed intervertebral disc with S2. Please correlate with plain films prior to any percutaneous or surgical intervention. There is mild chronic vertebral body height loss at L5. There is an upper endplate Schmorl's node with adjacent bone marrow edema at L2. No additional bone marrow edema. No acute fractures. There are multilevel endplate osteophytes. Conus terminates at the L1-L2 level. L1-L2: Disc contour is normal. No central canal stenosis. Facet arthropathy results in mild bilateral foraminal encroachment. L2-L3: Diffuse annular disc bulge and moderate bilateral facet arthropathy and ligamentum flavum thickening along with prominent dorsal epidural fat result in severe central canal stenosis and mild to moderate bilateral foraminal encroachment on image 4 of series 6. A far right lateral disc osteophyte protrusion results in mass effect on the extraforaminal right L2 nerve root. L3-L4: There is a left paracentral disc protrusion that compresses the traversing left L4 nerve root within the left subarticular zone. Background annular disc bulge and severe bilateral facet arthropathy and ligamentum flavum thickening. Epidural lipomatosis. Findings in concert result in moderate central canal stenosis. There is mild to moderate bilateral foraminal encroachment. L4-L5: Diffuse annular disc bulge with a superimposed central disc protrusion and severe bilateral facet arthropathy and ligamentum flavum thickening. Findings in concert result in severe central canal stenosis and a left lateral disc protrusion results in moderate to severe left foraminal stenosis with mass effect on the exiting left L4 nerve root. L5-S1: Diffuse annular disc bulge and severe bilateral facet arthropathy and ligamentum flavum thickening. Findings in concert result in moderate to severe central canal stenosis, severe bilateral subarticular zone stenosis with compression of the traversing S1 nerve roots bilaterally, and mild to moderate left-sided foraminal encroachment. S1-S2: Transitional disc contour is normal posteriorly. A far right lateral disc osteophyte protrusion approaches without compressing the extraforaminal right L5 nerve root. MR/MR lumbar spine wo con IMPRESSION: - There is transitional anatomy. For the purposes of this report there are 5 nonrib-bearing lumbar-type vertebral bodies and S1 is lumbarized, sharing a nearly completely developed intervertebral disc with S2. Please correlate with plain films prior to any percutaneous or surgical intervention. Image numbers are provided below given transitional anatomy. - At L5-S1, multifactorial degenerative changes result in moderate to severe central canal stenosis and severe severe bilateral subarticular zone stenosis with compression of the traversing S1 nerve roots bilaterally on image 18 of series 6. - At L4-L5, advanced multifactorial degenerative changes result in severe central canal stenosis on image 14 of series 6 and a left lateral disc protrusion results in moderate to severe left foraminal stenosis with mass effect on the exiting left L4 nerve root. - At L3-L4, multifactorial degenerative changes result in moderate central canal stenosis and a left paracentral disc protrusion compresses the traversing left L4 nerve root within the left subarticular zone on image 9 of series 6. - At L2-L3, advanced multifactorial degenerative changes result in severe central canal stenosis on image 4 of series 6. A far right lateral disc osteophyte protrusion results in mass effect on the extraforaminal right L2 nerve root.
== END 2023-12-30 12:21 | disposition home or self-care (01) ==
LOC: HO.MRI 12:20
PROVIDERS: Visit Provider Physical Medicine & Rehabilitation
DX: M47.816 Spondylosis without myelopathy or radiculopathy, lumbar region (principal); M48.061 Spinal stenosis, lumbar region without neurogenic claudication; M54.16 Radiculopathy, lumbar region
CPT/HCPCS: 72148

== ENCOUNTER 2024-01-11 11:00 | Outpatient (RCR) | payer MEDICARE, SELFPAY ==
--- NOTE | 2023-12-18 14:43 | MHC.PT.EP ---
[facility] [place] [facility] [place] Office [place] Office [address] Jan Mondragon [address] [phone] F: [phone] F: [phone] F: [phone] F: [phone] Physical Therapy Plan of Care Date of Evaluation: 12/18/23 Date of Surgery: Diagnosis: spondylosis without myelopathy or radiculopathy, lumbar region ITB syndrome Assessment: 73 y/o male referred to PT with spondylosis and ITB syndrome. 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 Examination shows decreased lumbar AROM, decreased L hip IR, increased pain lumbar spine, (+) SLR B, signficant limited HS length B, and increased pain. Recommend PT 2x/week for 6 week to address impairments, implement HEP, and optimize functional mobility. 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 Manual therapy to restore motion and function. Therapeutic exercise to improve strength and flexibility. Neuromuscular re-education for posture and balance. Therapeutic activities to return to functional activities of daily living. Electronically signed by: Crissy Ryan PT Please sign and return to therapist. Thank you for your referral.
--- NOTE | 2024-01-22 12:18 | MHC.PT.DC ---
[facility] [place] Office [place] Office [place] Office [address] Jan Mondragon [address] [phone] F: [phone] F: [phone] F: [phone] F: [phone] Physical Therapy Discharge Report Diagnosis: spondylosis without myelopathy or radiculopathy, lumbar region ITB syndrome Date of Surgery: Date of Evaluation: 12/18/23 Date of Discharge: 01/22/24 Treatments to Date: 7 Cancellations to Date: 0 No Shows to Date: 0 Discharge Status: Independent with HEP Recommend MD Follow-up Discharge Summary: Pt made minimal change with physical therapy and demonstrate flexion-directional preference. He is I with HEP and has f/u with ortho for further management at this time. Electronically signed by: Crissy Ryan PT Please sign and return to therapist. Thank you for your referral.
== END 2024-01-22 12:18 | disposition home or self-care (01) ==
LOC: HO.PTCHIC 11:00
PROVIDERS: PCP Internal Medicine; Visit Provider Physical Medicine & Rehabilitation
DX: M47.816 Spondylosis without myelopathy or radiculopathy, lumbar region (principal); M76.30 Iliotibial band syndrome, unspecified leg
CPT/HCPCS: 97110; 97112; 97140; 97161

== ENCOUNTER 2024-01-12 07:48 | Outpatient (REF) | payer MEDICARE, SELFPAY ==
[2024-01-12 11:01] LABS: Alanine Aminotransferase 22 U/L (0-40); Aspartate Amino Transferase 18 U/L (5-37); Cholesterol 223 mg/dL (<200); HDL Cholesterol 52 mg/dL (>40); LDL Cholesterol Calculated 148 mg/dL (<100); Triglycerides 118 mg/dL (<150)
[2024-01-12 11:21] LABS: TSH reflex Free T4 1.48 uIU/mL (0.32-4.0); Vitamin D 25-OH Total 48.1 ng/mL (>30)
== END 2024-01-12 07:49 | disposition home or self-care (01) ==
LOC: HO.HMGCLDS 07:48
PROVIDERS: PCP Internal Medicine; Visit Provider Internal Medicine
DX: E78.5 Hyperlipidemia, unspecified (principal); E04.1 Nontoxic single thyroid nodule; Z86.39 Personal history of other endocrine, nutritional and metabolic disease
CPT/HCPCS: 36415; 80061; 82306; 84443; 84450; 84460

== ENCOUNTER 2024-01-20 10:56 | Outpatient (AMB) | payer MEDICARE, SELFPAY ==
--- NOTE | 2024-01-20 10:58 | MHC.OFFVIS ---
Intake Visit Reasons: OV-left sciatic pain-follow up Intake Note: Crow is a 73 year old male who presents today for a follow up of left sciatic pain. Patient reports that he has had left sided sciatica for quite some time now. He has had physical therapy which has only mildly helpful. He is primarily concerned of the foot and toes. Allergies No Known Allergies Allergy (Verified 01/20/24 11:15) HPI Comments Details: 12/10/2023 1 month ago, new onset lower back pain and leg weakness. Denies inciting injuries. He says he was playing golf. When he went to ER, he was having severe pain on lower back and left buttocks. But during onset, worse with walking and standing, feels like legs no energy . He can walk only up to 1000 feet before he feels this weakness. Just a little bit of pain on lower back. Denies buttocks, hip or groin pain. Also noted numbness on legs when laying down. Retired. 12 years old, had some kind of back injury/fall. But denies any other problems/back pain issues. 01/20/2024 Here for discussion of MRI. Denies any lower back pain. Continues to have tingling, pins needles, weakness on right lower extremity. No footdrop. Symptoms worse with walking or standing. Unable to play golf. COUNTS INCLUDE 234 BEDS AT THE [facility] Medical History (Updated 12/10/23 @ 09:20 by Merari Weathers MD) Lumbar spondylosis Vitamin D deficiency Thyroid nodule greater than or equal to 1.5 cm in diameter incidentally noted on imaging study Mass of left lung Blood pressure elevated without history of HTN Varicose veins of bilateral lower extremities with pain Dyslipidemia Cataract Emphysema lung GERD (gastroesophageal reflux disease) Mitral regurgitation Prostate nodule Surgical History History of appendectomy Hx of colonoscopy History of thoracotomy Social History Housing: House Are you a primary healthcare receptionist to a significant other at home: No Do you presently have visiting nurse or other home services: No Patient Tobacco Use Status: Former Tobacco user e-Cigarette/Vaping Use: Never Used Second Hand Smoke Exposure: No Advance Directives Date on File: 01/01/22 Current occupational status: retired Cognitive needs: No Hearing needs: No Vision needs: No Physical Exam Constitutional: Patient appears to be in no acute distress, well nourished and well developed. Patient was appropriately conversant and oriented. MSK: No specific abnormalities found on inspection of the spine and all extremities. No pain with palpation over the lumbar area. Lumbar ROM was full. Strength is 5/5 in all muscle groups tested. No increased tone noted. Neurological: No focal weakness. Depressed left patellar reflex compared to right. Worthington?s negative bilaterally. Babinski was down going bilaterally. Clonus was negative. Gait is non-antalgic without loss of balance. Results Reviewed Results Reviewed: Ordering Physician: Merari Redding Date of Service: 12/30/23 Procedure(s): MR lumbar spine wo con Accession Number(s): [id number] cc: Merari Redding~ MR LUMBAR SPINE WITHOUT CONTRAST CLINICAL INFORMATION: Spondylosis without myelopathy or radiculopathy. Acute onset low back pain. COMPARISON: Lumbar spine radiographs 12/10/2023. TECHNIQUE: MRI of the lumbar spine was obtained using routine sequences without contrast. FINDINGS: There is transitional anatomy. For the purposes of this report there are 5 nonrib-bearing lumbar-type vertebral bodies and S1 is lumbarized, sharing a nearly completely developed intervertebral disc with S2. Please correlate with plain films prior to any percutaneous or surgical intervention. There is mild chronic vertebral body height loss at L5. There is an upper endplate Schmorl's node with adjacent bone marrow edema at L2. No additional bone marrow edema. No acute fractures. There are multilevel endplate osteophytes. Conus terminates at the L1-L2 level. L1-L2: Disc contour is normal. No central canal stenosis. Facet arthropathy results in mild bilateral foraminal encroachment. L2-L3: Diffuse annular disc bulge and moderate bilateral facet arthropathy and ligamentum flavum thickening along with prominent dorsal epidural fat result in severe central canal stenosis and mild to moderate bilateral foraminal encroachment on image 4 of series 6. A far right lateral disc osteophyte protrusion results in mass effect on the extraforaminal right L2 nerve root. L3-L4: There is a left paracentral disc protrusion that compresses the traversing left L4 nerve root within the left subarticular zone. Background annular disc bulge and severe bilateral facet arthropathy and ligamentum flavum thickening. Epidural lipomatosis. Findings in concert result in moderate central canal stenosis. There is mild to moderate bilateral foraminal encroachment. L4-L5: Diffuse annular disc bulge with a superimposed central disc protrusion and severe bilateral facet arthropathy and ligamentum flavum thickening. Findings in concert result in severe central canal stenosis and a left lateral disc protrusion results in moderate to severe left foraminal stenosis with mass effect on the exiting left L4 nerve root. L5-S1: Diffuse annular disc bulge and severe bilateral facet arthropathy and ligamentum flavum thickening. Findings in concert result in moderate to severe central canal stenosis, severe bilateral subarticular zone stenosis with compression of the traversing S1 nerve roots bilaterally, and mild to moderate left-sided foraminal encroachment. S1-S2: Transitional disc contour is normal posteriorly. A far right lateral disc osteophyte protrusion approaches without compressing the extraforaminal right L5 nerve root. MR/MR lumbar spine wo con IMPRESSION: - There is transitional anatomy. For the purposes of this report there are 5 nonrib-bearing lumbar-type vertebral bodies and S1 is lumbarized, sharing a nearly completely developed intervertebral disc with S2. Please correlate with plain films prior to any percutaneous or surgical intervention. Image numbers are provided below given transitional anatomy. - At L5-S1, multifactorial degenerative changes result in moderate to severe central canal stenosis and severe severe bilateral subarticular zone stenosis with compression of the traversing S1 nerve roots bilaterally on image 18 of series 6. - At L4-L5, advanced multifactorial degenerative changes result in severe central canal stenosis on image 14 of series 6 and a left lateral disc protrusion results in moderate to severe left foraminal stenosis with mass effect on the exiting left L4 nerve root. - At L3-L4, multifactorial degenerative changes result in moderate central canal stenosis and a left paracentral disc protrusion compresses the traversing left L4 nerve root within the left subarticular zone on image 9 of series 6. - At L2-L3, advanced multifactorial degenerative changes result in severe central canal stenosis on image 4 of series 6. A far right lateral disc osteophyte protrusion results in mass effect on the extraforaminal right L2 nerve root. Assessment & Plan Assessment & Plan (1) Lumbar spinal stenosis: Code(s): M48.061 - Spinal stenosis, lumbar region without neurogenic claudication Category: Medical Qualifiers: Neurogenic claudication status: with neurogenic claudication Qualified Code(s): M48.062 - Spinal stenosis, lumbar region with neurogenic claudication (2) Lumbar radiculopathy: Code(s): M54.16 - Radiculopathy, lumbar region Category: Medical Plan Reviewed MRI images with patient. Visualized severe spinal stenosis L4-5 and L5-S1, with left-sided disc protrusion at L4-5. Note that S1 is lumbarized. Discussed options for treatment including neurosurgery referral and injection. Patient defers any referral to Neurosurgery. I think he has a very high tolerance for pain. He denies back pain, denies any red flags. His main concern is the paresthesias in right lower extremity. He would rather start medication for symptom relief. Discussed option for gabapentin. We can start him on 100 mg q.h.s.. Discussed side effects and precautions. Patient eager to proceed. Discussed red flags watch out for. Assessment and plan discussed with patient, and patient was agreeable. All questions were answered thoroughly. Follow up in 6 weeks. To call our office if any urgent concern. Merari Weathers MD, ROMELIA Board Certified, [place] [employer] and [employer] (ABPMR) Board Certified, [place] Board [employer] Electro[employer] (ABEM) Medications: New gabapentin 100 mg PO BEDTIME 30 caps 2RF Coding Level of Care Code Est Pt Level 4 (43744) Diagnoses Spinal stenosis of lumbar region with neurogenic claudication M48.062 Neurogenic claudication status: with neurogenic claudication Lumbar radiculopathy M54.16
== END 2024-01-20 11:38 | disposition home or self-care (01) ==
PROVIDERS: PCP Internal Medicine; Visit Provider Physical Medicine & Rehabilitation
DX: M48.062 Spinal stenosis, lumbar region with neurogenic claudication (principal); M54.16 Radiculopathy, lumbar region
CPT/HCPCS: 99214

== ENCOUNTER → 2024-01-20 10:56 | Outpatient (BNVA) | payer MEDICARE, SELFPAY | PROVIDERS: PCP Internal Medicine; Visit Provider Physical Medicine & Rehabilitation | DX: M48.062 Spinal stenosis, lumbar region with neurogenic claudication (principal); M54.16 Radiculopathy, lumbar region | CPT/HCPCS: 99212 ==

== ENCOUNTER 2024-02-11 11:13 | Outpatient (AMB) | payer MEDICARE, SELFPAY ==
--- NOTE | 2024-02-11 11:17 | A.OFFPC_ITS ---
Vital Signs 02/11/24 11:42 02/11/24 12:17 Height 5 ft 11 in Weight 203 lb BMI 28.3 BP 152/84 H 160/90 H Blood Pressure Location Rt brachial Rt brachial Position Sitting Sitting Pulse 83 Pulse Source Pulse Oximeter Pulse Oximetry (%) 98 Oxygen Delivery Method Room Air Intake Visit Reasons: PE Intake Note: Pt is here today for his PE: Allergies No Known Allergies Allergy (Verified 02/11/24 12:05) Medication List - Last Reconciled 02/11/24 by Harper Cormier MD gabapentin 100 mg PO BEDTIME Tobacco use date assessed: 02/11/24 Fall risk assessment: No Falls in past year Last assessed Fall Risk: 02/11/24 Dental Screening Dental Screen Date: 02/11/24 Did you have a dental visit in the last 12 months?: Yes Did you have a dental problem in the last 6 months where you did not have access to dental care?: No Was dental information given to patient?: Patient has dentist HPI PE HPI Details 73 year old male , here today for his ph ysi, himanshu exam . Blood pressure is elevated, not on any medications at present time, denies any chest pain, no headache, no shortness of breath or lightheadedness Latest fasting labs showed elevated LDL currently not on any statin, does not follow any particular diet, has not been getting any regular exercise due to pain and numbness in his right lower extremity. He has been complaining of bilateral leg weakness, now with numbness and tingling in right lower extremity, worse with walking. Lumbar spine MRI showed presence of lumbar spine stenosis with disc protrusion noted in lower levels of lumbar spine. He has been referred to neuro spine surgery for further evaluation and has an appointment on 02/15/2024 . He has multinodular thyroid, recent labs showed normal TSH. He was referred to [facility] endocrinology, and underwent fine-needle aspiration biopsy of right lower lobe of thyroid which showed benign follicular nodule. Patient does not want any further testing, states that he feels fine. In 2022, he had Cyanoacralate ablation in left lower extremity , and post procedure ultrasound done 12/30/2022 came back positive for DVT and a follow-up s tudy done 01/09/2023 showed positive DVT extending greater than 50% into the saphenofemoral junction. He was then prescribed Eliquis, but patient did not take the medication and is not interested in any anticoagulation . Despite having been explained the risks of not taking medication which include further blood clot development or pulmonary embolism and even , but patient still refusing. He did agree to start taking aspirin 81 mg daily but again did not continue taking it. At present he has no complaints of any pain swelling in lower extremities. Complains of difficulty getting an erection. Would like to try Viagra. [facility] Medical History (Updated 02/14/24 @ 22:16 by Harper Cormier MD) Essential hypertension Vitamin D deficiency Thyroid nodule greater than or equal to 1.5 cm in diameter incidentally noted on imaging study Varicose veins of bilateral lower extremities with pain Dyslipidemia Cataract Emphysema lung GERD (gastroesophageal reflux disease) Mitral regurgitation Prostate nodule Surgical History (Updated 02/11/24 @ 13:04 by Harper Cormier MD) History of fine needle aspiration without imaging guidance History of appendectomy Hx of colonoscopy History of thoracotomy Social History Housing: House Are you a primary home care rn to a significant other at home: No Do you presently have visiting nurse or other home services: No Patient Tobacco Use Status: Former Tobacco user e-Cigarette/Vaping Use: Never Used Second Hand Smoke Exposure: No Advance Directives Date on File: 01/01/22 Current occupational status: retired Cognitive needs: No Hearing needs: No Vision needs: No Questionnaire PHQ-9 Over the last 2 weeks, how often have you been bothered by any of the following problems? 1. Little interest or pleasure in doing things: not at all 2. Feeling down, depressed, or hopeless: not at all 3. Trouble falling or staying asleep, or sleeping too much: not at all 4. Feeling tired or having little energy: not at all 5. Poor appetite or overeating: not at all 6. Feeling bad about yourself - or that you are a failure or have let yourself or your family down: not at all 7. Trouble concentrating on things, such as reading the newspaper or watching television: not at all 8. Moving or speaking so slowly that other people could have noticed. Or the opposite - being so fidgety or restless that you have been moving around a lot more than usual: not at all 9. Thoughts that you would be better off or of hurting yourself in some way: not at all Total score: 0 Depression Screening Interpretation: Negative Depression Screening Done: Yes 12752 - PHQ-9 Billing: Yes Source: Developed by Drs. Shelton Sheehan, Jada Morton, Jose R Hays and colleagues, with an educational august from [employer]. Thrive Questionnaire Date Thrive assessed: 02/11/24 I am a: Patient What is your living situation today?: I have a steady place to live Within the past 12 months, did the food you bought not last and you didn't have the money to get more?: Never true Within the past 12 months, did you worry whether your food would run out before you got money to buy more?: Never true Do you have trouble paying for medicines?: No Do you have trouble getting transportation to medical appointments?: No Do you have trouble paying your heating and electricity bill?: No Do you have trouble taking care of your child, family member or friend?: No Do you have trouble with day-to-day activities such as bathing, preparing meals, shopping, managing finances, etc.?: No Are you currently unemployed and looking for a job?: No Are you interested in more education?: No THRIVE Score: 0 AUDIT C Alcohol Use Questionnaire (AUDIT-C) 1. How often do you have a drink containing alcohol?: Monthly or less 2. How many drinks containing alcohol do you have on a typical day when you are drinking?: 1 or 2 3. How often do you have six or more drinks on one occasion?: Never Total Score: 1 DEE DEE-7 AMB Questionnaire DEE DEE-7 Date DEE DEE - 7 assessed: 02/11/24 Feeling nervous, anxious, or on edge: 0 = Not at all Not being able to stop or control worryin = Not at all Worrying too much about different things: 0 = Not at all Trouble relaxin = Not at all Being so restless that it is hard to sit still: 0 = Not at all Becoming easily annoyed or irritable: 0 = Not at all Feeling afraid as if something awful might happen: 0 = Not at all Total DEE DEE-7 score (0-4 normal; 5-9 mild; 10-14 moderate; 15-21 severe): 0 Source: Developed by Drs. Shelton Sheehan, Jada Morton, Jose R Hays and colleagues, with an educational august from [employer]. DEE DEE-7 Assessment Billing DEE DEE-7 Assessment Tool: DEE DEE-7 Assessment 75224 Review of Systems Const Denies fatigue, Denies fever(s), Denies headache(s), Denies malaise and Denies weakness Eyes Reports no additional complaints ENT Denies dysphagia, Denies dizziness, Denies headache(s), Denies hoarseness, Denies nasal congestion, Denies nasal discharge, Denies neck mass and Denies sore throat Card Denies chest pain, Denies lightheadedness and Denies dyspnea Resp Denies chest congestion, Denies cough and Denies dyspnea GI Denies dysphagia Reports no additional complaints Musc Reports as per HPI Skin/Breast Denies lesions and Denies rash Neuro Denies dizziness, Denies headache(s) and Denies weakness Psych Reports no additional complaints Endo Denies fatigue Livan/Lymph Reports no additional complaints Aller/Immun Denies seasonal rhinorrhea Physical exam (Primary Care) Vital Signs: Last Vital Signs Pulse 83 02/11/24 11:42 BP 160/90 H 02/11/24 12:17 Pulse Ox 98 02/11/24 11:42 Oxygen Delivery Method Room Air 02/11/24 11:42 BMI result Body Mass Index 28.3 Tobacco/Smoking Status: Tobacco use Status Tobacco use date assessed 02/11/24 02/11/24 11:46 Patient Tobacco Use Status Former Tobacco user 02/11/24 11:18 e-Cigarette/Vaping Use Never Used 02/11/24 11:18 PHQ-9: PHQ-9 Score PHQ-9: Total score 0 02/11/24 12:52 Depression Screening Interpretation: Negative Thrive Assessment: Date of Thrive Assessment Date Thrive assessed 02/11/24 02/11/24 11:49 Const General: comfortable, no acute distress and alert Nutritional Appearance: overweight Orientation/consciousness: patient oriented x3 HENMT Head: Yes normocephalic and Yes atraumatic General nose exam: No nasal discharge present Mouth: Normal oral and palatal mucosa present and moist mucous membranes Eyes General: appearance normal, both eyes and all related structures Neck Neck: Yes full ROM, Yes no lymphadenopathy and Yes supple Thyroid: not diffusely enlarged and nontender Resp Effort & Inspection: normal respiratory effort and able to speak in complete sentences Auscultation: clear to auscultation bilaterally Cardio Rate: regular rate Rhythm: regular rhythm Heart sounds: S1 normal heart sound present and S2 normal heart sound present Peripheral pulses: Peripheral pulses 2+ throughout GI Palpation (GI): Soft to palpation, nontender and no guarding Auscultation: normal bowel sounds General: Yes no CVA tenderness Male General Exam: Yes normal external exam Back/Spine/Pelvis Back: no CVA tenderness Skin General skin exam: no rashes or lesions noted Neuro General: patient oriented x3, tone normal, moves all extremities, Normal light touch and pain sensation and no focal motor deficits Gait exam (Neuro): Normal gait present Extrem General: Yes full ROM, Yes no joint enlargement, Yes no clubbing, cyanosis or edema, Yes no calf tenderness and Yes normal gait Psych Appearance: grossly normal and well kempt Mental Status: mental status grossly normal Speech and movement: Normal speech and movement present Affect: normal affect Thought process: Normal thought process present Thought content: Normal thought content present Results Reviewed Results Reviewed: Name: Crow Valenzuela Age/Sex: 73/M : 1950 Unit#: [id number] Attend Dr: Harper Cormier MD Re01/12/24 Status: DEP REF Location: [facility] Disch: SPEC : [id number] RUBY: 01/12/24 STATUS: COMP REQ : [id number] RECD: 01/12/[address]: Harper Cormier MD COMP: 01/12/24 ENTERED: 01/12/[address]: ORDERED: AST, ALT, Lipid Panel, Vitamin D 25-OH, TSH Rflx Test Result Flag Reference AST (GOT) 18 5-37 U/L ALT (GPT) 22 0-40 U/L Triglyceride 118 <150 mg/dL Desirable Triglyceride: less than 150 mg/dL Borderline High Triglyceride 150-199 mg/dL High Triglyceride: 200-499 mg/dL Very High Triglyceride: greater than or equal to 5OO mg/dL Cholesterol 223 H <200 mg/dL Desirable Cholesterol: less than 200 mg/dL Borderline High Cholesterol: 200-239 mg/dL High Cholesterol: greater than 239 mg/dL LDL Calculated 148 H <100 mg/dL Desirable LDL: less than 100 mg/dL Near Optimal/Above Optimal LDL: 110-129 mg/dL Borderline High LDL: 130-159 mg/dL High LDL: 160-189 mg/dL Very High LDL: greater than or equal to 190 mg/dL HDL 52 >40 mg/dL Desirable HDL: greater than 40 mg/dL Note: This HDL assay may give artificially low results in patients with liver disease. Vit D 25-OH Tot 48.1 >30 ng/mL Health Based Reference Values* < 20 ng/mL Deficient 20-30 ng/mL Insufficient > 30 ng/mL Sufficient *Davida CRONIN. N Engl J Med. 2007;357:266-280 Care must be taken in interpreting Vitamin D results from different laboratories and methodologies. Published data demonstrated that results from patients undergoing hemodialysis may show a negative bias when tested with various automated 25-OH vitamin D assays when compared to LC-MS/MS. When testing samples from patients whose predominant form of Vitamin D is Vitamin D2, such as patients receiving Vitamin D2 supplementation, results that are subtherapeutic should be confirmed with another method such as LC-MS/MS. TSH 1.48 0.32-4.0 uIU/mL END OF REPORT Assessment and Plan Assessment & Plan (1) Annual visit for general adult medical examination with abnormal findings: Code(s): Z00.01 - Encounter for general adult medical examination with abnormal findings Plan: Will check appropriate labs. Recommended dental visit every 6 months and regular eye exams, at least every 2 years. Take adequate calcium in diet and vitamin-D 3 at 2000 IU per cap once a day, in addition to weight-bearing exercises to help maintain good muscle tone and weight control. Declined colonoscopy. Followed yearly by Urology for enlarged prostate with benign biopsy of prostate in the past. Up-to-date with all his vaccinations (2) Dyslipidemia: Code(s): E78.5 - Hyperlipidemia, unspecified Plan: Reviewed recent fasting lipid profile with patient with elevated LDL cholesterol . Stressed importance of following a low-cholesterol diet and regular exercise, at least 30 minutes 3 to 4 times a week. Advised patient to make healthy food choices, eat more fruits, vegetables, whole grains, wild caught fish and low-fat dairy. Limit amount of meat and fried or fatty food products, as well as processed foods and fast foods. Follow-up scheduled with repeat fasting lipid panel in 2 months. (3) Essential hypertension: Code(s): I10 - Essential (primary) hypertension Plan: Blood pressure not at goal of less than 130/80. Started on lisinopril 5 mg taken once a day in a.m. Reinforced importance of following a low sodium diet, getting regular exercise, and lowering stress levels. Follow-up in 2 months (4) Lumbar spinal stenosis: Code(s): M48.061 - Spinal stenosis, lumbar region without neurogenic claudication Qualifiers: Neurogenic claudication status: with neurogenic claudication Qualified Code(s): M48.062 - Spinal stenosis, lumbar region with neurogenic claudication Plan: He has an appointment with neuro spine surgery next week (5) Advanced directives, counseling/discussion: Code(s): Z71.89 - Other specified counseling Plan: Initiated the conversation about Advanced Directives. Advanced Directives help patients prepare for current and future decisions about their medical treatment and place of care. Discussed with patient that it is a process where a patients current condition and prognosis are reviewed, their wishes for information regarding their illness are elicited, and likely medical dilemmas are presented and options discussed. MOLST form already done, healthcare proxy completed today. These forms can be amended as needed, reviewed yearly and make changes as needed (6) Erectile dysfunction: Code(s): N52.9 - Male erectile dysfunction, unspecified Qualifiers: Erectile dysfunction type: unspecified Qualified Code(s): N52.9 - Male erectile dysfunction, unspecified Plan: Trial of sildenafil 50 mg per tablet to take 1 tablet once a day only as needed for sexual intercourse 10 tablets with no refill, possible side effects of medication discussed with patient, discontinue use of any chest pain, shortness of breath palpitation or lightheadedness develops Orders: Orders Alanine Aminotransferase 04/10/24 E78.5 - Hyperlipidemia, unspecified, I10 - Essential (primary) hypertension Aspartate Amino Transferase 04/10/24 E78.5 - Hyperlipidemia, unspecified, I10 - Essential (primary) hypertension PSA,Total (Free>4and<10) 04/10/24 E78.5 - Hyperlipidemia, unspecified, I10 - Essential (primary) hypertension Basic Metabolic Panel Fasting 04/10/24 E78.5 - Hyperlipidemia, unspecified, I10 - Essential (primary) hypertension Lipid Panel 04/10/24 E78.5 - Hyperlipidemia, unspecified, I10 - Essential (primary) hypertension Medications: New lisinopril 5 mg PO DAILY 90 tabs 1RF E78.5 - Hyperlipidemia, unspecified, I10 - Essential (primary) hypertension sildenafil (Viagra) administer 30 minutes to 4 hours before activity 50 mg PO DAILY PRN 10 tabs 0RF sexual activity Coding Level of Care Code Est Pt Prev Care >65y(32535) Diagnoses Annual visit for general adult medical examination with abnormal findings Z00.01 Dyslipidemia E78.5 Essential hypertension I10 Spinal stenosis of lumbar region with neurogenic claudication M48.062 Neurogenic claudication status: with neurogenic claudication Advanced directives, counseling/discussion Z71.89 Erectile dysfunction, unspecified erectile dysfunction type N52.9 Erectile dysfunction type: unspecified Additional Codes DEE DEE-7 Assessment Billing - DEE DEE-7 Assessment Tool: DEE DEE-7 Assessment [id number] ([id number])
[2024-02-11 11:42] VITALS: BP 152/84; PULSE 83; O2SAT 98; BMI 28.3
[2024-02-11 12:17] VITALS: BP 160/90
== END 2024-02-11 12:29 | disposition home or self-care (01) ==
PROVIDERS: PCP Internal Medicine; Visit Provider Internal Medicine
DX: Z00.00 Encounter for general adult medical examination without abnormal findings (principal); E78.5 Hyperlipidemia, unspecified; I10 Essential (primary) hypertension; M48.062 Spinal stenosis, lumbar region with neurogenic claudication; N52.9 Male erectile dysfunction, unspecified
CPT/HCPCS: 99397

== ENCOUNTER 2024-02-15 10:49 | Outpatient (AMB) | payer MEDICARE, SELFPAY ==
--- NOTE | 2024-02-15 11:16 | A.SPINEOV_ITS ---
Intake Visit Reasons: spinal stenosis Intake Note: Mr. Valenzuela is here today c/o right leg pain [place] [facility] [place] 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 Vahid Hunt Thank you for referring MR Valenzuela to our office today. He is a very nice 73-year-old [place] gentleman who presents to the office today for evaluation a pain going down his right leg which started sometime in October. He reports that he was golfing and he felt something in his back but it really was not all that bothersome until about 2-3 days later he started to get a severe pain going down his leg. That goes down his leg into his thigh and into the front anterior tibial portion of his calf and into the top of his foot. The pain has gotten slightly better than what it was in the beginning. Originally he had to go to the emergency walk-in clinic to be treated. He is tried Tylenol without any significant improvement. He tried physical therapy with minimal improvement. The pain is primarily there when he is walking and standing and does get better if he sits down. He tells me he can go about 10 minutes of walking before he has to sit down. Sleeping is okay. He had an MRI done at [facility] showing severe stenosis amongst other degenerative changes in the lumbar spine was sent today to see us for an evaluation. No cauda equina symptoms reported. PMH: He reports he has a history of high cholesterol BPH but other than that he is reasonably healthy, denies ever having had surgery or any other medical issues. Social hx: He does not smoke, drink or use any recreational drugs Medications: he takes a cholesterol pill, lisinopril, Flomax Allergies: denies any drug allergies Physical exam: patient is awake alert oriented, no acute distress, he does have trouble walking, he has been using a cane in the office he is uncomfortable getting up on the examining table, his strength is normal and full in bilateral upper and lower extremities. He has absent reflexes at the patella and Achilles. Imaging review: He has a lumbar MRI done at [facility], there is transitional anatomy with 6 lumbar vertebrae. The radiologist is calling the 1st fully formed disc at the lower level of the spine S1-S2. Based on this numbering, at the 2nd fully formed disc from the bottom, what is being referred to his L4-5, shows what looks like a central disc herniation with severe central canal st enosis. Above this at L2-3, is also what looks like moderate to severe stenosis. There other degenerative changes in the lumbar spine but these are the 2 most meaningful in terms of nerve compression. Impression: 73-year-old [place] gentleman presents with what sounds like an acute herniated disc sometime back in October when he was swinging a golf club, 2 days later experiencing severe pain radiating down his right leg into the top of his foot. It sounds like an L5 radiculopathy and would be most consistent with the findings at L4-5 where there severe central canal stenosis secondary to what looks like a herniated disc. 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 Please note that he has transitional anatomy with 6 lumbar vertebrae. He has failed conservative treatment thus far. Typically this is something Dr. Betts would offer him microdiskectomy and decompression at the right L4-5 space. The question is whether we would also address the L2-3 stenosis which is moderate to severe. once I have a chance to review all this with Dr. Betts I will get back to the patient. Pt was given risk and benefits of surgery including but not limited to infection, hematoma , nerve injury,durotomy, weakness,bowel/bladder injury, persistent pain, as well as the option to continue with conservative treatment and patient wishes to proceed with surgery. Pt is aware they should stop their motrin, aspirin 7 days prior to surgery. All questions were answered to the best of our ability. If there is anything about this patients medical history that we have overlooked or concerns you have about us proceeding with surgery we would appreciate any input you can offer Thank you for allowing us to care for your patient. The total time spent with this visit with this patient was45 minutes reviewing history, physical exam, Lumbar imaging review, and implementation of treatment plan or further diagnostic testing Jeffy Betts MD,PhD [facility] Coding Level of Care Code New Pt Level 4 (24301) Diagnoses Spinal stenosis of lumbar region with neurogenic claudication M48.062 Neurogenic claudication status: with neurogenic claudication
== END 2024-02-15 13:02 | disposition home or self-care (01) ==
PROVIDERS: PCP Internal Medicine; Referring Provider Physical Medicine & Rehabilitation; Visit Provider Physician Assistant
DX: M48.062 Spinal stenosis, lumbar region with neurogenic claudication (principal)
CPT/HCPCS: 99204; 99214

== ENCOUNTER → 2024-02-15 10:49 | Outpatient (BNVA) | payer MEDICARE, SELFPAY | PROVIDERS: PCP Internal Medicine; Visit Provider Physician Assistant | DX: M48.062 Spinal stenosis, lumbar region with neurogenic claudication (principal) | CPT/HCPCS: 99202 ==

== ENCOUNTER 2024-03-03 09:00 | Outpatient (AMB) | payer MEDICARE, SELFPAY ==
--- NOTE | 2024-03-03 09:03 | A.OFFVIS_ITS ---
Intake Visit Reasons: OV-left sciatic pain-follow up Intake Note: Crow is a 73 year old male who presents to the office today for left sciatic pain follow up. Pt states he was seen by Dr. Apple at the spine clinic in January. Pt states the pain is a little better but states he is having a real hard time with balance. Pt states he has numbness in his right leg from the knee down. Allergies No Known Allergies Allergy (Verified 03/03/24 09:03) HPI Comments Details: 12/10/2023 1 month ago, new onset lower back pain and leg weakness. Denies inciting injuries. He says he was playing golf. When he went to ER, he was having severe pain on lower back and left buttocks. But during onset, worse with walking and standing, feels like legs no energy . He can walk only up to 1000 feet before he feels this weakness. Just a little bit of pain on lower back. Denies buttocks, hip or groin pain. Also noted numbness on legs when laying down. Retired. 12 years old, had some kind of back injury/fall. But denies any other problems/back pain issues. 01/20/2024 saw patient for discussion of MRI. Denied any lower back pain. Continued to have tingling, pins needles, weakness on right lower extremity. No footdrop. Symptoms worse with walking or standing. Unable to play golf. Patient seen by neurospine 02/14 and recommended right L4-5 decompression/diskectomy. [facility] Medical History (Updated 02/14/24 @ 22:16 by Harper Cormier MD) Essential hypertension Vitamin D deficiency Thyroid nodule greater than or equal to 1.5 cm in diameter incidentally noted on imaging study Varicose veins of bilateral lower extremities with pain Dyslipidemia Cataract Emphysema lung GERD (gastroesophageal reflux disease) Mitral regurgitation Prostate nodule Surgical History (Updated 02/11/24 @ 13:04 by Harper Cormier MD) History of fine needle aspiration without imaging guidance History of appendectomy Hx of colonoscopy History of thoracotomy Social History Housing: House Are you a primary career advisor to a significant other at home: No Do you presently have visiting nurse or other home services: No Patient Tobacco Use Status: Former Tobacco user e-Cigarette/Vaping Use: Never Used Second Hand Smoke Exposure: No Advance Directives Date on File: 01/01/22 Current occupational status: retired Cognitive needs: No Hearing needs: No Vision needs: No Physical Exam Constitutional: Patient appears to be in no acute distress, well nourished and well developed. Patient was appropriately conversant and oriented. MSK: No specific abnormalities found on inspection of the spine and all extremities. No pain with palpation over the lumbar area. Lumbar ROM was full. Strength is 5/5 in all muscle groups tested. No increased tone noted. Neurological: No focal weakness. Depressed bilateral patellar reflex. Worthington?s negative bilaterally. Babinski was down going bilaterally. Clonus was negative. Gait is non-antalgic without loss of balance. Results Reviewed Results Reviewed: Ordering Physician: Merari Redding Date of Service: 12/30/23 Procedure(s): MR lumbar spine wo con Accession Number(s): [id number] cc: Merari Redding~ MR LUMBAR SPINE WITHOUT CONTRAST CLINICAL INFORMATION: Spondylosis without myelopathy or radiculopathy. Acute onset low back pain. COMPARISON: Lumbar spine radiographs 12/10/2023. TECHNIQUE: MRI of the lumbar spine was obtained using routine sequences without contrast. FINDINGS: There is transitional anatomy. For the purposes of this report there are 5 nonrib-bearing lumbar-type vertebral bodies and S1 is lumbarized, sharing a nearly completely developed intervertebral disc with S2. Please correlate with plain films prior to any percutaneous or surgical intervention. There is mild chronic vertebral body height loss at L5. There is an upper endplate Schmorl's node with adjacent bone marrow edema at L2. No additional bone marrow edema. No acute fractures. There are multilevel endplate osteophytes. Conus terminates at the L1-L2 level. L1-L2: Disc contour is normal. No central canal stenosis. Facet arthropathy results in mild bilateral foraminal encroachment. L2-L3: Diffuse annular disc bulge and moderate bilateral facet arthropathy and ligamentum flavum thickening along with prominent dorsal epidural fat result in severe central canal stenosis and mild to moderate bilateral foraminal encroachment on image 4 of series 6. A far right lateral disc osteophyte protrusion results in mass effect on the extraforaminal right L2 nerve root. L3-L4: There is a left paracentral disc protrusion that compresses the traversing left L4 nerve root within the left subarticular zone. Background annular disc bulge and severe bilateral facet arthropathy and ligamentum flavum thickening. Epidural lipomatosis. Findings in concert result in moderate central canal stenosis. There is mild to moderate bilateral foraminal encroachment. L4-L5: Diffuse annular disc bulge with a superimposed central disc protrusion and severe bilateral facet arthropathy and ligamentum flavum thickening. Findings in concert result in severe central canal stenosis and a left lateral disc protrusion results in moderate to severe left foraminal stenosis with mass effect on the exiting left L4 nerve root. L5-S1: Diffuse annular disc bulge and severe bilateral facet arthropathy and ligamentum flavum thickening. Findings in concert result in moderate to severe central canal stenosis, severe bilateral subarticular zone stenosis with compression of the traversing S1 nerve roots bilaterally, and mild to moderate left-sided foraminal encroachment. S1-S2: Transitional disc contour is normal posteriorly. A far right lateral disc osteophyte protrusion approaches without compressing the extraforaminal right L5 nerve root. MR/MR lumbar spine wo con IMPRESSION: - There is transitional anatomy. For the purposes of this report there are 5 nonrib-bearing lumbar-type vertebral bodies and S1 is lumbarized, sharing a nearly completely developed intervertebral disc with S2. Please correlate with plain films prior to any percutaneous or surgical intervention. Image numbers are provided below given transitional anatomy. - At L5-S1, multifactorial degenerative changes result in moderate to severe central canal stenosis and severe severe bilateral subarticular zone stenosis with compression of the traversing S1 nerve roots bilaterally on image 18 of series 6. - At L4-L5, advanced multifactorial degenerative changes result in severe central canal stenosis on image 14 of series 6 and a left lateral disc protrusion results in moderate to severe left foraminal stenosis with mass effect on the exiting left L4 nerve root. - At L3-L4, multifactorial degenerative changes result in moderate central canal stenosis and a left paracentral disc protrusion compresses the traversing left L4 nerve root within the left subarticular zone on image 9 of series 6. - At L2-L3, advanced multifactorial degenerative changes result in severe central canal stenosis on image 4 of series 6. A far right lateral disc osteophyte protrusion results in mass effect on the extraforaminal right L2 nerve root. Reviewed notes from neurospine. Assessment & Plan Assessment & Plan (1) Lumbar spinal stenosis: Code(s): M48.061 - Spinal stenosis, lumbar region without neurogenic claudication Category: Medical Qualifiers: Neurogenic claudication status: with neurogenic claudication Qualified Code(s): M48.062 - Spinal stenosis, lumbar region with neurogenic claudication (2) Lumbar radiculopathy: Code(s): M54.16 - Radiculopathy, lumbar region Category: Medical Plan MRI showed severe spinal stenosis L4-5 and L5-S1, with disc protrusion at L4-5. Note that S1 is lumbarized. Patient has describes signs of claudication consistent with spinal stenosis. Today he says that pain is more radicular to the right side. Neurospine has recommended surgery, specifically right L4-5 dec ompression/diskectomy. However patient has not received a call from their department. I wrote a short note for their department to assist patient today and instructed patient to go down to near spine department today. Patient agrees and understands the need for surgery. Assessment and plan discussed with patient, and patient was agreeable. All questions were answered thoroughly. Follow up after surgery. Merari Weathers MD, ROMELIA Board Certified, [place] [employer] and [employer] (ABPMR) Board Certified, [place] [employer] (ABEM) Coding Level of Care Code Est Pt Level 3 (47644) Diagnoses Spinal stenosis of lumbar region with neurogenic claudication M48.062 Neurogenic claudication status: with neurogenic claudication Lumbar radiculopathy M54.16
== END 2024-03-03 10:45 | disposition home or self-care (01) ==
PROVIDERS: PCP Internal Medicine; Visit Provider Physical Medicine & Rehabilitation
DX: M48.062 Spinal stenosis, lumbar region with neurogenic claudication (principal); M54.16 Radiculopathy, lumbar region
CPT/HCPCS: 99214

== ENCOUNTER → 2024-03-03 09:00 | Outpatient (BNVA) | payer MEDICARE, SELFPAY | PROVIDERS: PCP Internal Medicine; Visit Provider Physical Medicine & Rehabilitation | DX: M48.062 Spinal stenosis, lumbar region with neurogenic claudication (principal); M54.16 Radiculopathy, lumbar region | CPT/HCPCS: 99212 ==

== ENCOUNTER → 2024-03-08 12:57 | Outpatient (BNV) | payer MEDICARE, SELFPAY | PROVIDERS: PCP Internal Medicine; Visit Provider Internal Medicine Cardiovascular Disease | DX: I49.8 Other specified cardiac arrhythmias (principal) | CPT/HCPCS: 93010 ==

== ENCOUNTER 2024-03-10 08:22 | Day surgery (SDC) | payer MEDICARE, SELFPAY ==
--- NOTE | 2024-03-08 | ECG_ITS ---
Test Reason : preop Blood Pressure : / mmHG Vent. Rate : 063 BPM Atrial Rate : 063 BPM P-R Int : 162 ms QRS Dur : 114 ms QT Int : 378 ms P-R-T Axes : 049 069 049 degrees QTc Int : 386 ms Sinus rhythm with marked sinus arrhythmia Minimal voltage criteria for LVH, may be normal variant ( Johnny product ) Borderline ECG When compared with ECG of 02-JUN-2022 13:29, No significant change was found Referred By: Sherlyn Viveros Electronically Signed By:JIM ALBRIGHT MD
[2024-03-08 12:22] VITALS: BP 174/85; PULSE 61; RESP 18; O2SAT 97; BMI 28.6
--- NOTE | 2024-03-08 12:35 | HO.ANESPROP2 ---
Documented by User: Sherlyn Viveros NP 03/08/24 14:51 HPI - Anesthesia Eval Consult details Narrative: 73yo M for Right?L4-5 Decompression/Discectomy, 03/10/24 No recent illness No CP/SOB with walking/golfing GERD: Rare, prn tums Mitral regurg: Incidental finding on ECHO. No symptoms. No f/u DVT: 12/2022 Left LE after vascular ablation procedure. Pt declined anticoag at that time and f/u with vascular. Asymptomatic at time of PAT. Reviewed with Dr Tello. [facility] Active Problems Active Problems: All Active Problems Lumbar radiculopathy (Acute) Lumbar spinal stenosis (Acute) Essential hypertension (Acute) Vitamin D deficiency (Acute) Dyslipidemia (Acute) Past Medical History Medical History DVT (deep venous thrombosis) Back pain BPH (benign prostatic hyperplasia) Numbness Pneumonia Essential hypertension Vitamin D deficiency Thyroid nodule greater than or equal to 1.5 cm in diameter incidentally noted on imaging study Varicose veins of bilateral lower extremities with pain Dyslipidemia Cataract Emphysema lung GERD (gastroesophageal reflux disease) Mitral regurgitation Prostate nodule Family History Family history of problems with anesthesia: No Surgical History Surgical History History of lung biopsy Hx of prior ablation treatment History of fine needle aspiration without imaging guidance History of appendectomy Hx of colonoscopy History of thoracotomy History of Problems with Anesthesia: No Social History Social History Housing: House Are you a primary critical care rn to a significant other at home: No Do you presently have visiting nurse or other home services: No Patient Tobacco Use Status: Former Tobacco user e-Cigarette/Vaping Use: Never Used Second Hand Smoke Exposure: No Use of substances other than those prescribed or required for medical reasons: No Have you been hit, kicked, punched, or otherwise hurt by someone within the past year? If so, by whom?: No Are you DNR?: No Advance Directives: No Advance Directives Information Provided: Yes Advance Directives on File: No Advance Directives Date on File: 01/01/22 Recently lost weight without trying: No Eating poorly because of decreased appetite: No Nutrition Risks: No Nutritional Risk Poor oral hygiene: Yes (partial lower denture) Current occupational status: retired Cognitive needs: No Hearing needs: No Vision needs: No Meds Allergies Allergy/AdvReac Type Severity Reaction Status Date / Time No Known Allergies Allergy Verified 03/10/24 09:09 Home Medications ?Medication ?Instructions ?Recorded ?Confirmed ?Last Taken ?Type tamsulosin 0.4 mg capsule 0.4 mg PO BEDTIME 03/03/24 03/10/24 Unknown History Men's 50 Plus Multivitamin 1 tab PO DAILY 03/08/24 03/10/24 Unknown History Exam Height,Weight and Vital Signs: Height 5 ft 11 in Weight 92.986 kg Last Vital Signs Pulse 61 03/08/24 12:22 Resp 18 03/08/24 12:22 BP 174/85 H 03/08/24 12:22 Pulse Ox 97 03/08/24 12:22 O2 Del Method Room Air 03/08/24 12:22 Pertinent Lab Results Pertinent Lab Results: Lab Results 03/08/24 Range/Units 12:58 WBC 6.8 (4.8-10.8) X10*3/uL RBC 4.46 L (4.60-5.80) X10*6/uL Hgb 14.3 (14.0-18.0) g/dl Hct 41.6 L (42.0-52.0) % MCV 93.3 (80.0-98.0) fL MCH 32.1 (27.0-33.0) pg MCHC 34.4 (31.0-36.0) g/dl RDW 12.3 (11.0-16.0) % Plt Count 198 (160-400) X10*3/uL MPV 9.5 (9.4-12.4) fL Absolute Nucleated RBC 0.000 (0.0-0.012) X10*3/uL Nucleated RBC % (auto) 0.0 (0.0-0.2) /100WBC Sodium 142 (135-145) mmol/L Potassium 4.4 (3.3-5.1) mmol/L Chloride 106 (96-108) mmol/L Carbon Dioxide 30 H (22-29) mmol/L Anion Gap 10 L (12-20) BUN 12 (9-16) mg/dL Creatinine 1.12 (0.5-1.4) mg/dL Estim Creat Clear Calc 68.4 Estimated GFR > 60 Random Glucose 102 (60-115) mg/dL Calcium 9.5 D (8.4-10.2) mg/dL Narrative Narrative: EKG 03/2024 Vent. Rate : 063 BPM Atrial Rate : 063 BPM P-R Int : 162 ms QRS Dur : 114 ms QT Int : 378 ms P-R-T Axes : 049 069 049 degrees QTc Int : 386 ms Sinus rhythm with marked sinus arrhythmia Minimal voltage criteria for LVH, may be normal variant ( Johnny product ) Borderline ECG When compared with ECG of 02-JUN-2022 13:29, No significant change was found Airway Mallampati Class: III TM Dist: >3cm Neck ROM: Full Partial: Lower Heart: RRR Lungs: CTAB Assessment and Plan Assessment Anesthesia Assessment: Anesthesia Plan Discussed and PAT Visit Final Anesthetic Review Family History of Problems with Anesthesia: No History of Problems with Anesthesia: No Documented by User: Keyanna William MD 03/10/24 09:24 [facility] Past Medical History Medical History DVT (deep venous thrombosis) Back pain BPH (benign prostatic hyperplasia) Numbness Pneumonia Essential hypertension Vitamin D deficiency Thyroid nodule greater than or equal to 1.5 cm in diameter incidentally noted on imaging study Varicose veins of bilateral lower extremities with pain Dyslipidemia Cataract Emphysema lung GERD (gastroesophageal reflux disease) Mitral regurgitation Prostate nodule Family History Family history of problems with anesthesia: No Surgical History Surgical History History of lung biopsy Hx of prior ablation treatment History of fine needle aspiration without imaging guidance History of appendectomy Hx of colonoscopy History of thoracotomy History of Problems with Anesthesia: No Social History Social History Housing: House Are you a primary critical care rn to a significant other at home: No Do you presently have visiting nurse or other home services: No Patient Tobacco Use Status: Former Tobacco user e-Cigarette/Vaping Use: Never Used Second Hand Smoke Exposure: No Use of substances other than those prescribed or required for medical reasons: No Have you been hit, kicked, punched, or otherwise hurt by someone within the past year? If so, by whom?: No Are you DNR?: No Advance Directives: No Advance Directives Information Provided: Yes Advance Directives on File: No Advance Directives Date on File: 01/01/22 Recently lost weight without trying: No Eating poorly because of decreased appetite: No Nutrition Risks: No Nutritional Risk Poor oral hygiene: Yes (partial lower denture) Current occupational status: retired Cognitive needs: No Hearing needs: No Vision needs: No Meds Allergies Allergy/AdvReac Type Severity Reaction Status Date / Time No Known Allergies Allergy Verified 03/10/24 09:09 Home Medications ?Medication ?Instructions ?Recorded ?Confirmed ?Last Taken ?Type tamsulosin 0.4 mg capsule 0.4 mg PO BEDTIME 03/03/24 03/10/24 Unknown History Men's 50 Plus Multivitamin 1 tab PO DAILY 03/08/24 03/10/24 Unknown History Exam Height,Weight and Vital Signs: Height 5 ft 11 in Weight 92.986 kg Last Vital Signs Pulse 61 03/08/24 12:22 Resp 18 03/08/24 12:22 BP 174/85 H 03/08/24 12:22 Pulse Ox 97 03/08/24 12:22 O2 Del Method Room Air 03/08/24 12:22 Airway Mallampati Class: III TM Dist: >3cm Neck ROM: Full Partial: Lower Loose/Missing/Broken Teeth: Yes (Missing teeth top and bottom back) Heart: RRR ?murmur Lungs: CTAB Assessment and Plan Assessment Anesthesia Assessment: Anesthesia Plan Discussed and Chart Reviewed Final Anesthetic Review Family History of Problems with Anesthesia: No History of Problems with Anesthesia: No NPO: Yes ASA Class: III Final Preanesthetic Review: No Changes in Pt Med Stat, Meds/Allgs Chart Reviewed, Consent Obtained/Reviewed and Anes Risks/Benef Reviewed Patient Risk: Intermediate Procedure Risk: Intermediate Assessment/Block/Sedation in SS: Assess/Block/Sedation- Anesthetic Plan Anesthetic Plan: GA Disposition: Standard PACU
[2024-03-08 13:55] LABS: Hematocrit 41.6 % (42.0-52.0); Hemoglobin 14.3 g/dl (14.0-18.0); Mean Corpuscular HGB Conc 34.4 g/dl (31.0-36.0); Mean Corpuscular Hemoglobin 32.1 pg (27.0-33.0); Mean Corpuscular Volume 93.3 fL (80.0-98.0); Mean Platelet Volume 9.5 fL (9.4-12.4); Platelet Count 198 X10*3/uL (160-400); Red Blood Count 4.46 X10*6/uL (4.60-5.80); Red Cell Distribution Width 12.3 % (11.0-16.0); White Blood Count 6.8 X10*3/uL (4.8-10.8)
[2024-03-08 14:14] LABS: Anion Gap 10 (12-20); Blood Urea Nitrogen 12 mg/dL (9-16); Calcium 9.5 mg/dL (8.4-10.2); Carbon Dioxide 30 mmol/L (22-29); Chloride 106 mmol/L (96-108); Creatinine Clr Calc Pharmacy 68.4; Estimated Glomerular Filt Rate > 60; Glucose Random 102 mg/dL (60-115); Potassium 4.4 mmol/L (3.3-5.1); Sodium 142 mmol/L (135-145)
[2024-03-10] VITALS (8 sets, daily range): BP systolic 140–149; BP diastolic 70–84; PULSE 66–81; RESP 14–18; TEMP 36.3–36.6; O2SAT 97–100; BMI 28.0
--- NOTE | ~2024-03-10 | FL_ITS ---
EXAMINATION: XR FLUOROSCOPY WITH IMAGES CLINICAL INFORMATION: L4-5 decompression right side. COMPARISON: MR lumbar 12/30/2023 TECHNIQUE: Fluoroscopy provided to: Dr. Betts Fluoroscopy time: 1.9 seconds DAP: 0.4095 Gycm2 Images: 1 FINDINGS: Solitary coned-down image of the lumbar spine laterally shows surgical probe in place at the L4-5 facet level. FL/FL guidance in OR IMPRESSION: Fluoroscopic guidance. Please refer to the full operative report for details. Electronically signed by: Cristino Simmons MD 05/06/2024 03:38 PM EDT
--- NOTE | 2024-03-10 08:56 | MHC.SHP ---
Pre-Procedural Eval Section A - 24 Hr Update-Section A only Date of Service: 03/10/24 The patient is an INPATIENT: No Section B - Complete if H&P > 30 days Chief Complaint: Spinal stenosis, lumbar region without neurogenic Details of Present Illness: Bilateral leg pain Allergies: Allergies Allergy/AdvReac Type Severity Reaction Status Date / Time No Known Allergies Allergy Verified 03/03/24 09:03 Review of Systems Sugical H&P ROS: Negative: Constitution, Cardiovascular, Respiratory, Neurological, Psychiatric, Hem-Onc, Allergic/Immunologic, Gastrointestinal, Genitourinary, Musculoskeletal, Integumentary, Endocrine and Eyes/Ears/Nose/Throat Exam Surgical H&P Exam: Normal: HEENT, Normal: Heart, Normal: Lungs, Normal: Extremities, Normal: Abdomen, Normal: Skin (Awake, alert) and Normal: Neurological Plan I have reviewed the history and physical and performed a pertinent physical examination on my patient. No changes have occurred unless specified. L4-5 decompression Time Spent With Patient Time: Total time managing care of this patient today ___ 5 _ minutes.
[2024-03-10] MEDS: Lactated Ringers 1,000 ML 100 ML IVCONT (09:30)
[2024-03-10] MEDS: methocarbamoL 750 MG TABLET PO (09:35)
[2024-03-10] MEDS: Gabapentin 300 MG CAPSULE PO (09:35)
--- NOTE | 2024-03-10 11:16 | P.OP_ITS ---
Operative Note Operative Note Date of Service: 03/10/24 Narrative: Preoperative Diagnosis: L 4 5 spinal stenosis/lateral recess stenosis/neural foraminal stenosis with right lumbar radiculopathy Operation: L4-5 Laminotomy, Partial facetectomy and foraminotomy with use of microscope Consent Informed Consent was obtained for this operation. I have explained the nature, purpose and benefits of the operation. I have discussed the risks and benefit of the operation including possible complications or adverse events with patient/family. Alternative(s) were discussed with the patient with their relative benefits and risks as well as the consequences of not accepting the operation were included in obtaining consent. Surgeon: ALISON OHARA MD, PHD Procedure Assisted By: Antonio Morrell [facility] Description of Procedure This 73-year-old male suffering from a right lumbar radiculopathy. X-rays and MRI show 6 lumbar vertebrae. Therefore the 1st disc is called the S1-S2 level and counting upwards we see severe stenosis at L4-L5 with a central disc bulge. The patient was offered a decompression. The procedure complications were explained. The patient was consented. The patient was brought to the operating room and endotracheally intubated. The patient was turned in prone position on the Deejay frame. Prep and drape was done followed by timeout. The Physician virtual assistant for advertisers provided access. A mid lumbar incision was made followed by release of the paravertebral muscle on the right side to expose the right L4-5 lamina and facet joints. An intraoperative x-ray was obtained to confirm the correct level. The microscope was brought in. I took over the procedure. The high-speed drill was used to do a L4-5 laminotomy until flavum ligament was reached. A #2 Kerrison was used to expand the laminotomy near flush to the pedicle. The patient has a congenitally small spinal canal and therefore the inferior articular process of the L4 came off during the facetectomy. The flavum ligament was opened and resected with a #3 Kerrison to decompress the underlying thecal sac. The flavum ligament was removed to decompress the lateral recess and the exiting L5 nerve root. A long nerve hook could be easily passed along the medial side of the pedicle as a sign of adequate decompression. I deemed the diskectomy not necessary though there was a disc bulge but was able to freely both my nerve hook under the thecal sac and nerve root. The microscope was removed. Hemostasis was done. The physician virtual assistant for advertisers close the Incision in 2 layers. Steri-Strips were used to approximate incision. An OpSite with Tegaderm was used to cover the incision. All sponge needle counts were correct. Patient was extubated and transported in stable is to recovery room. Anesthesia: General Estimated Blood Loss (ml): 10 mL Complications: None Duration of Surgery: Under 60 Minutes Postoperative Plan: Discharge to home
--- NOTE | 2024-03-10 11:24 | P.DS_ITS ---
DS: Providers Provider Date of Service: 03/10/24 Primary care physician: Harper Cormier MD DS: Summary Time Attestation Discharge Coordination Time (in mins): 15 Quality: Safe Use of Opioids Does Pt have an Active Cancer Diagnosis on the Problem List?: No Quality: Stroke Does the patient have a stroke diagnosis?: No Physical Exam Vital Signs: Vital Signs: Last Vital Signs Temp 97.8 F 03/10/24 09:10 Pulse 66 03/10/24 09:10 Resp 16 03/10/24 09:10 BP 141/84 H 03/10/24 09:10 Pulse Ox 97 03/10/24 09:10 O2 Del Method Room Air 03/10/24 09:10 BMI result Body Mass Index 28.0 Discharge Plan Discharge Patient Disposition: Home, Self-Care Referrals: Harper Cormier MD [Primary Care Provider] - 1 Week Discharge Medications: New oxycodone 5 mg tablet 5 mg PO Q6H PRN (Reason: severe pain (scale score 7-10)) Qty: 30 0RF Rx Instructions: Partial Fill upon patient request. Continued Men's 50 Plus Multivitamin 1 tab PO DAILY lisinopril 5 mg tablet 5 mg PO DAILY Qty: 90 1RF gabapentin 100 mg capsule 100 mg PO BEDTIME Qty: 30 2RF tamsulosin 0.4 mg capsule 0.4 mg PO BEDTIME Discharge Orders: Discharge Order (Routine); Ordered 03/10/24 Ordered By: Antoino Morrell Diet: Advance to usual diet Activity on Discharge: As tolerated Activity Restrictions/Additional Instructions: After your spinal surgery we ask you to observe the following restri ctions/guidelines: Activity: It is normal to feel some discomfort as you increase your activity, but that will improve with time. We ask you avoid heavy lifting or acitivities that cause pain. As a general rule, 8lbs is a safe limit for lifting right after surgery. Walk as much as you feel comfortable but not to exhaustion. You will feel extra tired the first few days after surgery. Stay well hydrated. It is OK to walk up and down stairs You may return to driving when you are off narcotics (such as vicodin, oxycodone, dilaudid, etc), and you are back to normal functional capacity. If you have any concerns please check with office before driving. Return to work is specific to each patient and each surgery, so please speak with your doctor/PA at first follow up. Please bring paperwork such as FMLA at that time if you need it filled out. Medications: We will give you a short supply of narcotics after surgery (usually one weeks worth). If you need more please call the office but do not use more than prescribed. You will need to give our office 48 hours notice if you need narcotics refilled and we do not fill narcotics on weekends or evenings. If you are on a narcotic, it is a good idea to take a stool softener such as colace or senna to avoid constipation If you take blood thinner such as aspirin, Plavix, Coumadin, Effient, Eliquis etc for conditions such as Afib, DVT, Pulmonary embolus, coronary disease, stents etc please speak with your surgeon about specific details as to when you can resume these medications. You can resume NSAIDs on post op day 1 (eg: Motrin, Naproxen, etc). Follow up: Please call the office, , after surgery to arrange a 3 week follow up for wound check. Wound Care: You may remove your dressing on the first day after surgery. ?You may ?leave open to air. Please do not remove the steri strips underneath. they will fall off on their own in one week. IT IS NORMAL FOR THE WOUND TO OOZE OR BE BLOODY FOR A FEW DAYS AFTER SURGERY. ?IF THIS HAPPENS JUST PLACE NEW DRESSING OVER IT TO AVOID STAINING CLOTHES. You may shower on post op day # 1 We ask that you do not let the water soak the wound. If it does get wet, just towel dry lightly. Please do not scrub your incision or place any type of chemical/ointment on the wound. No tub baths, pools or jacuzzis for one month. If you have any leaking or redness from your wound, or fevers, please call the office. Print Language: Other
== END 2024-03-10 12:45 | disposition home or self-care (01) ==
PROVIDERS: Nurse Practitioner; PCP Internal Medicine; Visit Provider Neurological Surgery
PROC: (CPT 63047; principal; 2024-03-10 11:00)
DX: M48.062 Spinal stenosis, lumbar region with neurogenic claudication (principal); M54.16 Radiculopathy, lumbar region; E78.00 Pure hypercholesterolemia, unspecified; I10 Essential (primary) hypertension; N40.0 Benign prostatic hyperplasia without lower urinary tract symptoms; Z79.899 Other long term (current) drug therapy; Z98.890 Other specified postprocedural states; Z87.891 Personal history of nicotine dependence
CPT/HCPCS: 63047; 36415; 80048; 85027; 93005; J0131; J0690; J1100; J1170; J1596; J1885; J2250; J2371; J2405; J2704; J3010

== ENCOUNTER → 2024-03-10 08:22 | Outpatient (BNV) | payer MEDICARE, SELFPAY | PROVIDERS: PCP Internal Medicine; Visit Provider Neurological Surgery | DX: M48.061 Spinal stenosis, lumbar region without neurogenic claudication (principal) | CPT/HCPCS: 63047; 99499 ==

== ENCOUNTER 2024-03-31 10:53 | Outpatient (AMB) | payer MEDICARE, SELFPAY ==
--- NOTE | 2024-03-31 10:55 | HO.SPINEOV ---
Intake Visit Reasons: 1st post op Intake Note: Mr. Valenzuela is here today for his 1st Post-op visit. Opal Miner Required: Yes Opal Miner Services: Opal Miner Present Allergies No Known Allergies Allergy (Verified 03/10/24 09:09) Assessment & Plan Assessment & Plan (1) Status post lumbar spine surgery for decompression of spinal cord: Code(s): Z98.890 - Other specified postprocedural states Category: Surgical Plan Crow comes in today for his 1st postoperative appointment after having a lumbar decompression surgery completed 4 right lumbar radiculopathy. He reports that the bulk of his pain has subsided since the surgery but he is still left with some tenderness/pulling/cramping in his right posterior gastrocnemius. Overall he is doing well in his completing his ADLs without issue. His main concern is that he would like to return to golfing. I advised against this as I do not want him to cause unnecessary strain in his low back from vigorous twisting before his bodies able to completely heal from surgery. I did inform him that he can lift up to 12 lb, can go for walks/runs outside, and is able to remain active as long as he does not lift any excessive heavy weight. No new neurological deficits. The patient is able to ambulate well and rises from a seated position without difficulty. His posterior incision site appears clean, dry, and well healing. I would like Crow to follow up with us again in 6 weeks to evaluate continued healing progress. I encouraged him at the end of this visit that he is likely to continue to see progress as his inflammation goes down. Antonio Betts MD,PhD [facility] Coding Level of Care Code Global (08861) Diagnoses Status post lumbar spine surgery for decompression of spinal cord Z98.890
== END 2024-03-31 11:20 | disposition home or self-care (01) ==
PROVIDERS: PCP Internal Medicine; Visit Provider Physician Assistant
DX: Z98.890 Other specified postprocedural states (principal)
CPT/HCPCS: 99024

== ENCOUNTER → 2024-03-31 10:53 | Outpatient (BNVA) | payer MEDICARE, SELFPAY | PROVIDERS: PCP Internal Medicine; Visit Provider Physician Assistant | DX: Z48.89 Encounter for other specified surgical aftercare (principal); Z98.890 Other specified postprocedural states | CPT/HCPCS: 99212 ==

== ENCOUNTER 2024-04-25 07:47 | Outpatient (REF) | payer MEDICARE, SELFPAY ==
[2024-04-25 11:01] LABS: Alanine Aminotransferase 20 U/L (0-40); Anion Gap 11 (12-20); Aspartate Amino Transferase 18 U/L (5-37); Blood Urea Nitrogen 12 mg/dL (9-16); Calcium 9.6 mg/dL (8.4-10.2); Carbon Dioxide 26 mmol/L (22-29); Chloride 108 mmol/L (96-108); Cholesterol 207 mg/dL (<200); Estimated Glomerular Filt Rate > 60; Glucose Fasting 99 mg/dL (60-99); HDL Cholesterol 51 mg/dL (>40); LDL Cholesterol Calculated 133 mg/dL (<100); Potassium 4.1 mmol/L (3.3-5.1); Sodium 141 mmol/L (135-145); Triglycerides 116 mg/dL (<150)
[2024-04-25 11:18] LABS: PSA,Total (Free>4and<10) 2.56 ng/mL (0.00-4.00)
== END 2024-04-25 07:48 | disposition home or self-care (01) ==
LOC: HO.HMGCLDS 07:47
PROVIDERS: PCP Internal Medicine; Visit Provider Internal Medicine
DX: I10 Essential (primary) hypertension (principal); E78.5 Hyperlipidemia, unspecified; Z12.5 Encounter for screening for malignant neoplasm of prostate
CPT/HCPCS: 36415; 80048; 80061; 84153; 84450; 84460

== ENCOUNTER 2024-04-29 09:33 | Outpatient (AMB) | payer MEDICARE, SELFPAY ==
--- NOTE | 2024-04-29 10:04 | MHC.PC.OV ---
Intake Visit Reasons: Andsabasd f/u labs [phone] Allergies No Known Allergies Allergy (Verified 04/29/24 10:51) Medication List - Last Reconciled 04/29/24 by Harper Cormier MD gabapentin 100 mg PO BEDTIME lisinopril 5 mg PO DAILY [Men's 50 Plus Multivitamin 1 tab PO DAILY] tamsulosin 0.4 mg PO BEDTIME Tobacco use date assessed: 04/29/24 Fall risk assessment: No Falls in past year Last assessed Fall Risk: 04/29/24 Dental Screening Dental Screen Date: 04/29/24 Did you have a dental visit in the last 12 months?: Yes Did you have a dental problem in the last 6 months where you did not have access to dental care?: No Was dental information given to patient?: Patient has dentist HPI Andsabasd f/u labs [phone] HPI Details 73-year-old male with hypertension hyperlipidemia, here today for follow-up. He has been taking his medications as directed, has been trying to follow recommended diet and has just started exercising again after his lumbar spine decompression surgery done a month ago. Recent fasting labs showed improvement in his lipid level, and fasting blood sugar, electrolytes are all within normal limits. Requests refill on his lisinopril prescription [facility] Medical History (Updated 04/29/24 @ 10:57 by Harper Cormier MD) DVT (deep venous thrombosis) Back pain BPH (benign prostatic hyperplasia) Numbness Pneumonia Essential hypertension Vitamin D deficiency Thyroid nodule greater than or equal to 1.5 cm in diameter incidentally noted on imaging study Varicose veins of bilateral lower extremities with pain Dyslipidemia Cataract Emphysema lung GERD (gastroesophageal reflux disease) Mitral regurgitation Prostate nodule Surgical History (Updated 04/29/24 @ 10:57 by Harper Cormier MD) Status post lumbar spine surgery for decompression of spinal cord History of lung biopsy Hx of prior ablation treatment History of fine needle aspiration without imaging guidance History of appendectomy Hx of colonoscopy History of thoracotomy Social History Housing: House Are you a primary rn complex care to a significant other at home: No Do you presently have visiting nurse or other home services: No Patient Tobacco Use Status: Former Tobacco user e-Cigarette/Vaping Use: Never Used Second Hand Smoke Exposure: No Advance Directives Date on File: 01/01/22 Current occupational status: retired Cognitive needs: No Hearing needs: No Vision needs: No Questionnaire Thrive Questionnaire Date Thrive assessed: 02/11/24 DEE DEE-7 AMB Questionnaire DEE DEE-7 Date DEE DEE - 7 assessed: 02/11/24 Source: Developed by Drs. Shelton Sheehan, Jada Morton, Jose R Hays and colleagues, with an educational august from [employer]. Review of Systems Const Denies fatigue, Denies fever(s), Denies malaise and Denies weakness Eyes Reports no additional complaints Card Denies chest pain, Denies lightheadedness and Denies dyspnea Resp Denies chest congestion, Denies cough and Denies dyspnea Reports no additional complaints Musc Details: Occasional cramp in right calf, no swelling Skin/Breast Denies lesions and Denies rash Neuro Denies weakness Psych Reports no additional complaints Endo Denies fatigue Livan/Lymph Reports no additional complaints Aller/Immun Denies seasonal rhinorrhea Physical exam (Primary Care) Tobacco/Smoking Status: Tobacco use Status Tobacco use date assessed 04/29/24 04/29/24 10:06 Patient Tobacco Use Status Former Tobacco user 04/29/24 10:06 e-Cigarette/Vaping Use Never Used 04/29/24 10:06 Thrive Assessment: Date of Thrive Assessment Date Thrive assessed 02/11/24 04/29/24 10:06 Telehealth Telehealth Telehealth Platform: [facility] Location of provider rendering services: practice address Location of patient: address on file Patient Identification confirmed using: Name, : Yes Telehealth method: video Patient verbally consented to treatment: Yes Patient verbally consented to billing insurance company: Yes Patient informed of any privacy concerns related to visit: Yes Minutes spent on Phone/Video with Pt.: 15 Results Reviewed Results Reviewed: Name: Crow Valenzuela Age/Sex: 73/M : 1950 Unit#: [id number] Attend Dr: Carlos Betts MD, PhD Re03/10/24 Status: [facility]P [facility] [place] [facility] Disch: SPEC : [id number] RUBY: 03/08/24 STATUS: COMP REQ : [id number] RECD: 03/08/[address]: Sherlyn Viveros [employer] COMP: 03/08/24 ENTERED: 03/08/[address]: [facility] MD[facility]Carlos MD, PhD ORDERED: CBC No Diff Test Result Flag Reference WBC 6.8 4.8-10.8 X10*3/uL RBC 4.46 L 4.60-5.80 X10*6/uL HGB 14.3 14.0-18.0 g/dl HCT 41.6 L 42.0-52.0 % MCV 93.3 80.0-98.0 fL MCH 32.1 27.0-33.0 pg MCHC 34.4 31.0-36.0 g/dl RDW 12.3 11.0-16.0 % PLT 198 160-400 X10*3/uL MPV 9.5 9.4-12.4 fL NRBC Pct Auto 0.0 0.0-0.2 /100WBC Name: Corw Valenzuela Age/Sex: 73/M : 1950 Unit#: [id number] Attend Dr: Harper Cormier MD Re04/25/24 Status: DEP REF [facility] Disch: SPEC : [id number] RUBY: 04/25/24 STATUS: COMP REQ : [id number] RECD: 04/25/24-[address]: Harper Cormier MD COMP: 04/25/24 ENTERED: 04/25/[address]: ORDERED: Met Prof Fast, AST, ALT, Lipid Panel Test Result Flag Reference Sodium 141 135-145 mmol/L Potassium 4.1 3.3-5.1 mmol/L CL 108 96-108 mmol/L CO2 26 22-29 mmol/L Gap 11 L 12-20 BUN 12 9-16 mg/dL Creat 0.85 0.5-1.4 mg/dL EGFR > 60 NOTE: For -[place] individuals, multiply the result by 1.210. Chronic Kidney Disease: Estimated GFR < 60 mL/min/1.73m2 Severe Kidney Disease: Estimated GFR < 15 mL/min/1.73m2 FBS 99 60-99 mg/dL CA 9.6 8.4-10.2 mg/dL AST (GOT) 18 5-37 U/L ALT (GPT) 20 0-40 U/L Triglyceride 116 <150 mg/dL Desirable Triglyceride: less than 150 mg/dL Borderline High Triglyceride 150-199 mg/dL High Triglyceride: 200-499 mg/dL Very High Triglyceride: greater than or equal to 5OO mg/dL Cholesterol 207 H <200 mg/dL Desirable Cholesterol: less than 200 mg/dL Borderline High Cholesterol: 200-239 mg/dL High Cholesterol: greater than 239 mg/dL LDL Calculated 133 H <100 mg/dL Desirable LDL: less than 100 mg/dL Near Optimal/Above Optimal LDL: 110-129 mg/dL Borderline High LDL: 130-159 mg/dL High LDL: 160-189 mg/dL Very High LDL: greater than or equal to 190 mg/dL HDL 51 >40 mg/dL Desirable HDL: greater than 40 mg/dL Note: This HDL assay may give artificially low results in patients with liver disease. Laboratory Tests 04/25/24 08:27 Total PSA 2.56 Assessment and Plan Assessment & Plan (1) Essential hypertension: Code(s): I10 - Essential (primary) hypertension Plan: Will continue lisinopril, refill sent (2) Dyslipidemia: Code(s): E78.5 - Hyperlipidemia, unspecified Plan: Recent fasting labs showed improvement in his lipid levels especially LDL cholesterol. Continue with low-cholesterol diet and as soon as he can to start exercising regularly again. Medications: Refilled lisinopril 5 mg PO DAILY 90 tabs 1RF E78.5 - Hyperlipidemia, unspecified, I10 - Essential (primary) hypertension Coding Level of Care Code Tele Est Pt Level 3 (44012) Complex EM visit Add On G2211 Diagnoses Essential hypertension I10 Dyslipidemia E78.5
== END 2024-04-29 13:31 | disposition home or self-care (01) ==
PROVIDERS: PCP Internal Medicine; Visit Provider Internal Medicine
DX: I10 Essential (primary) hypertension (principal); E78.5 Hyperlipidemia, unspecified

== ENCOUNTER → 2024-04-29 09:33 | Outpatient (BNVA) | payer MEDICARE, SELFPAY | PROVIDERS: PCP Internal Medicine; Visit Provider Internal Medicine ==

== ENCOUNTER 2024-05-12 10:50 | Outpatient (AMB) | payer MEDICARE, SELFPAY ==
--- NOTE | 2024-05-12 10:56 | A.SPINEOV_ITS ---
Intake Visit Reasons: 2nd post op Intake Note: Mr. Valenzuela is here today for his 2nd post-op. 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: No Allergies No Known Allergies Allergy (Verified 05/12/24 10:59) Assessment & Plan Assessment & Plan (1) Lumbar spinal stenosis: Code(s): M48.061 - Spinal stenosis, lumbar region without neurogenic claudication Category: Medical Qualifiers: Neurogenic claudication status: with neurogenic claudication Qualified Code(s): M48.062 - Spinal stenosis, lumbar region with neurogenic claudication Plan Procedure: L4-5 Laminotomy, Partial facetectomy and foraminotomy Crow is a pleasant 73 year old male who comes in today for his 2nd postoperative visit after having aL4-5 laminotomy completed by our service a little over 2 months ago. He reports good resolution of his pain since his surgery. He still has some residual pains in his left medial ankle and near the tips of his toes, but is severe shooting radiculopathy down the right side has resolved. He has several questions regarding the postoperative healing course all of which I answered to the best of my abilities. We also discussed potential [id number] medications to help treat his pain. He did inquire about an adjacent segment that he was told he had pathology at. He was wondering why this was not also addressed during the surgery. I informed him that many times we will do surgery to provide symptomatic relief, and will not address segments that do not appear to be causing the patient distress/issues. No new neurological deficits. The patient ambulates well and rises from seated position without difficulty. His posterior incision site appears clean and closed. There is no need for continued routine follow-up with Crow, he was encouraged that a lot of times patient see improvement of her symptoms all the way up to about 6 months after surgery. He will follow up with us on an as-needed basis going forward. Antonio Betts MD,PhD [facility] Coding Level of Care Code Global (33387) Diagnoses Spinal stenosis of lumbar region with neurogenic claudication M48.062 Neurogenic claudication status: with neurogenic claudication
== END 2024-05-12 11:44 | disposition home or self-care (01) ==
PROVIDERS: PCP Internal Medicine; Visit Provider Physician Assistant
DX: M48.062 Spinal stenosis, lumbar region with neurogenic claudication (principal)
CPT/HCPCS: 99024

== ENCOUNTER → 2024-05-12 10:50 | Outpatient (BNVA) | payer MEDICARE, SELFPAY | PROVIDERS: PCP Internal Medicine; Visit Provider Physician Assistant | DX: Z47.89 Encounter for other orthopedic aftercare (principal); M48.062 Spinal stenosis, lumbar region with neurogenic claudication; Z98.890 Other specified postprocedural states | CPT/HCPCS: 99212 ==